=== PATIENT | male | born 1965 | race Caucasian/White ===

== ENCOUNTER 2018-05-19 09:10 | Inpatient (IN) | payer MEDICAID ==
[~2018-05-19] VITALS: Ht 167.6 cm; Wt 88.8 kg
[2018-05-19] VITALS (14 sets, daily range): BP systolic 115–138; BP diastolic 68–80; PULSE 94–102; RESP 12–25; Ht 167.6 cm; Wt 88.8 kg
[2018-05-19] MEDS: PANTOPRAZOLE IV 80 MG in SOD CHLORIDE 0.9% 100 ML IV SCH ×2 (03:30→16:17)
[~2018-05-19 09:10] MED LIST: LIDOCAINE 2% (SDV) 5 ML INJ ONE
[2018-05-19] MEDS ORDERED: SOD CHLORIDE 0.9% 1,000 ML IV STA (09:39)
[2018-05-19] MEDS ORDERED: SOD CHLORIDE 0.9% 0 ML IV ONE (09:53)
[2018-05-19] MEDS ORDERED: CEFTRIAXONE 1 GM/50 ML (PMX) 50 ML IVPB STA (10:45)
[2018-05-19] MEDS ORDERED: PANTOPRAZOLE IV 80 MG in SOD CHLORIDE 0.9% 100 ML IV STA (10:45)
[2018-05-19] MEDS ORDERED: PANTOPRAZOLE 40 MG INJ IV ONE (11:00)
[2018-05-19] MEDS ORDERED: SOD CHLORIDE 0.9% 1,000 ML IV SCH (11:06)
[2018-05-19] MEDS ORDERED: ONDANSETRON 4 MG INJ IV PRN ×2 (11:30→13:00)
[2018-05-19] MEDS ORDERED: ACETAMINOPHEN 325 MG TAB PO PRN (11:30)
--- NOTE | 2018-05-19 11:48 | ERD ---
ER Documentation Chief Complaint Chief Complaint C/O PALPITAITON, SOB FOR A WEEK; NO PAIN HPI This is a 52-year-old male who presents to the emergency room for evaluation of generalized weakness and heart palpitations for the past week. The patient does state that he drinks alcohol every day however he is not drinking alcohol the past 6 days. He states that he has been feeling more weak and noticed that his heart rate has high recently. The patient denies any chest pain that he has some shortness of breath which is worse with exertion. The patient denies taking any medication and came to the ER today for evaluation of his symptoms ROS All systems reviewed and are negative except as per history of present illness. Medications Home Meds No Active Prescriptions or Reported Meds Allergies Allergies: Coded Allergies: No Known Allergy (Unverified , 05/19/18) PMhx/Soc Medical and Surgical Hx: pt denies Medical Hx History of Surgery: Yes (HERNIA) Anesthesia Reaction: No Hx Neurological Disorder: No Hx Respiratory Disorders: No Hx Cardiac Disorders: No Hx Psychiatric Problems: No Hx Miscellaneous Medical Probl: No Hx Alcohol Use: Yes (DAILY) Hx Substance Use: No Hx Tobacco Use: No Smoking Status: Never smoker Physical Exam Vitals Vital Signs Date Temp Pulse Resp B/P (MAP) Pulse Ox O2 O2 Flow FiO2 Time Delivery Rate 05/19/18 97.4 106 17 154/85 100 Nasal 2.0 10:23 (108) Cannula 05/19/18 97.4 119 20 167/93 100 09:17 (117) Physical Exam INITIAL VITAL SIGNS: Reviewed by me GENERAL: The patient is well developed and appropriate for usual state of health in no apparent distress HEENT: Conjunctival pallor, dry mucous membranes, pupils equal, round, and reactive to light. EOMI. There is no scleral icterus. NECK: C-spine is soft and supple, there is no meningismus. There is no cervical lymphadenopathy. LUNGS: Clear to auscultation bilaterally. There are no rales, wheezes or rhonchi. HEART: Tachycardic no murmurs, clicks, rubs or gallops. ABDOMEN: Soft, non-tender, non-distended. There are bowel sounds in all four quadrants. No rebound or guarding. EXTREMITIES: There is no peripheral cyanosis or edema. No focal swelling or erythema. NEUROLOGICAL: The patient moves all four extremities with 5/5 strength. Cranial nerves II - XII are intact. Normal gait. Alert and oriented SKIN: There is no apparent rash or petechiae. Rectal exam: Dark stool, heme positive HEME/LYMPHATIC: There is no evidence of excessive bruising or lymphedema. PSYCHIATRIC: The patient does not appear anxious or depressed. Result Diagram: 05/19/1840 05/19/18 0940 Results 24 hrs Laboratory Tests Test 05/19/18 09:40 05/19/18 10:40 White Blood Count 12.7 10^3/ul Red Blood Count 1.95 10^6/ul Hemoglobin 5.9 g/dl Hematocrit 18.4 % Mean Corpuscular Volume 94.4 fl Mean Corpuscular Hemoglobin 30.3 pg Mean Corpuscular Hemoglobin Concent 32.1 g/dl Red Cell Distribution Width 14.0 % Platelet Count 170 10^3/UL Mean Platelet Volume 10.4 fl Immature Granulocytes % 2.100 % Neutrophils % 60.3 % Lymphocytes % 27.5 % Monocytes % 8.6 % Eosinophils % 1.1 % Basophils % 0.4 % Nucleated Red Blood Cells % 0.9 /100WBC Immature Granulocytes # 0.270 10^3/ul Neutrophils # 7.7 10^3/ul Lymphocytes # 3.5 10^3/ul Monocytes # 1.1 10^3/ul Eosinophils # 0.1 10^3/ul Basophils # 0.1 10^3/ul Nucleated Red Blood Cells # 0.1 10^3/ul Pathologist Review (Hematology) YES Sodium Level 138 mmol/L Potassium Level 4.1 mmol/L Chloride Level 107 mmol/L Carbon Dioxide Level 24 mmol/L Anion Gap 7 Blood Urea Nitrogen 25 mg/dl Creatinine 0.62 mg/dl Est Glomerular Filtrat Rate mL/min > 60 mL/min Glucose Level 180 mg/dl Calcium Level 8.2 mg/dl Total Bilirubin 0.6 mg/dl Direct Bilirubin 0.00 mg/dl Indirect Bilirubin 0.6 mg/dl Aspartate Amino Transf (AST/SGOT) 81 IU/L Alanine Aminotransferase (ALT/SGPT) 107 IU/L Alkaline Phosphatase 65 IU/L Troponin I < 0.012 ng/ml Total Protein 5.6 g/dl Albumin 2.8 g/dl Globulin 2.80 g/dl Albumin/Globulin Ratio 1.00 Lipase 247 U/L Urine Color YELLOW Urine Clarity CLEAR Urine pH 6.0 Urine Specific [place] 1.024 Urine Ketones NEGATIVE mg/dL Urine Nitrite NEGATIVE mg/dL Urine Bilirubin NEGATIVE mg/dL Urine Urobilinogen NEGATIVE mg/dL Urine Leukocyte Esterase NEGATIVE Jose/ul Urine Hemoglobin NEGATIVE mg/dL Urine Glucose NEGATIVE mg/dL Urine Total Protein NEGATIVE mg/dl Current Medications Medications Dose Sig/Jean Paul Start Time Status Last (Trade) Ordered Route PRN Stop Time Admin Dose Reason Admin Sodium 1,000 ml @ Q1H STAT 05/19/18 DC 05/19/18 Chloride 1,000 mls/hr IV 09:39 10:17 05/19/18 10:38 Sodium 0 ml @ 0 Q0M ONCE 05/19/18 DC Chloride mls/hr IV 09:53 05/19/18 09:55 80 mg ONCE ONCE 05/19/18 DC Pantoprazole IV 11:00 (Protonix 05/19/18 11:01 Iv) Pantoprazole 100 ml @ ONCE STAT 05/19/18 80 mg/Sodium 10 mls/hr IV 10:45 Chloride 05/19/18 20:44 Ceftriaxone 50 ml @ ONCE STAT 05/19/18 DC Sodium 100 mls/hr IVPB 10:45 05/19/18 11:14 Sodium 1,000 ml @ [id number] IV 05/19/18 Chloride 80 mls/hr 11:06 05/19/18 23:35 Ondansetron 4 mg ER BRIDGE 05/19/18 HCl (Zofran PRN IV 11:30 Inj) NAUSEA/VOMITI 05/20/18 11:29 NG 650 mg ER BRIDGE 05/19/18 Acetaminophen PRN PO 11:30 (Tylenol .MILD PAIN 05/20/18 11:29 Tab) 1-3 OR TEMP Procedures/MDM EKG: Rate/Rhythm: Sinus tachycardia QRS, ST, T-waves: [No changes consistent w/ acute ischemia] Impression: Sinus tachycardia Chest X-ray 1V Interpreted by me: Soft Tissue: No acute abnormalities Bones: No acute abnormalities Mediastinum/Cardiac Silhouette/Lungs: [No acute abnormalities] This is a 52-year-old male who presents to the emergency room for evaluation of heart palpitations. On my exam the patient was tachycardic, he did have conjunctival pallor. He remained hemodynamically stable with mean arterial pressure greater than 65. An IV line was established and the patient was given IV fluids. The patient states that he does drink alcohol frequently however is not had any alcohol in the past 5 days. Lab work does demonstrate low hemoglobin of 5.3 and rectal examination does show dark stool which is heme positive. The patient is likely suffering from a upper GI bleed and symptomatic anemia at this time. The patient was given Protonix push, he was started on a Protonix drip and will be transfused 2 units of packed red blood cells. The patient will be admitted at this time for further workup and possible gastroenterology consult. The patient will be admitted to Dr. Lott at this time Critical Care: Excluding all billable procedures Time: 44 minutes Treatments/Evaluations: Close monitoring and treatment of unstable vital signs, cardiorespiratory, and neurologic status, while maintaining tight balance of fluid, respiratory, and cardiac interventions. Departure Diagnosis: Primary Impression: Upper GI bleeding Additional Impressions: Symptomatic anemia Palpitations Condition: Serious RYLAND MACE DO May 19, 2018 11:48
[2018-05-19] MEDS: SOD CHLORIDE 0.9% 1,000 ML IV SCH (12:37)
--- NOTE | 2018-05-19 12:41 | HP ---
Date/Time of Note Date/Time of Note DATE: 05/19/18 TIME: 12:41 Assessment/Plan VTE Prophylaxis SCD applied (from Nsg): Yes Pharmacological prophylaxis: NA/contraindicated Pharm contraindication: bleeding Assessment/Plan Hospital Course SUBJECTIVE: Seen and evaluated patient in ER room 13. Currently no rectal bleed, last bleed was prior to arrival. Receiving 1 unit of blood. OBJECTIVE: Vital signs-see below PHYSICAL EXAM: Constitutional: Well-developed, adequately built, lying in bed comfortably. Psych: nl mood/affect, no complaints Head: atraumatic, normocephalic Eyes: nl conjunctiva, nl sclera ENMT: mucosa pink and moist, nl external ears & nose Neck: non-tender, supple Respiratory: clear to auscultation, normal air movement Cardiovascular: nl pulses, regular rate and rhythm Gastrointestinal: non-tender, soft, bowel sounds active in all 4 quadrants. Musculoskeletal/extremities: nl extremities to inspection, motor strength equal bilaterally, no focal deficit. Normal pulses,no cyanosis, no edema. Neurological: Alert oriented 3,nl speech, nl strength Skin: nl turgor ASSESSMENT/PLAN: 52-year-old male with daily alcohol use, here with sudden onset of blackish/tarry stool x 3 day duration, found to have severe anemia.. 1. Melena, likely upper GI bleed -GI consult with for EGD ZACHERY -N.p.o, Protonix drip, IV fluids 2. Acute blood loss anemia -2 units PRBC has been ordered. We will repeat H&H and will transfuse with standing orders -Add iron panel to a.m. labs and IV iron treatment accordingly 3. Leukocytosis, likely reactive -At this time, there is no evidence of infection and will keep off antibiotics. 4. Transaminase elevation, likely secondary to alcohol use -Obtain a hepatitis panel. Benign RUQ exam 5. Alcohol abuse -Counseled on cessation 6. Sinus tachycardia, likely hemodynamic secondary to blood loss anemia -EKG reviewed. No chest pain. Negative troponin. Continue monitoring patient on telemetry and continue hydration. DVT prophylaxis: SCDs Due to prophylaxis: Protonix CODE STATUS: Full code Diet: N.p.o. Rest of the management depend on hospital course. Approximately 60 m spent on this history and physical. Patient was seen in collaboration with Result Diagram: 05/19/1840 05/19/18 0940 Results 24hrs Laboratory Tests Test 05/19/18 09:40 05/19/18 10:40 White Blood Count 12.7 H Red Blood Count 1.95 L Hemoglobin 5.9 *L Hematocrit 18.4 L Mean Corpuscular Volume 94.4 Mean Corpuscular Hemoglobin 30.3 Mean Corpuscular Hemoglobin Concent 32.1 Red Cell Distribution Width 14.0 Platelet Count 170 Mean Platelet Volume 10.4 Immature Granulocytes % 2.100 H Neutrophils % 60.3 Lymphocytes % 27.5 Monocytes % 8.6 Eosinophils % 1.1 Basophils % 0.4 Nucleated Red Blood Cells % 0.9 H Immature Granulocytes # 0.270 H Neutrophils # 7.7 H Lymphocytes # 3.5 H Monocytes # 1.1 H Eosinophils # 0.1 Basophils # 0.1 Nucleated Red Blood Cells # 0.1 H Pathologist Review (Hematology) YES Sodium Level 138 Potassium Level 4.1 Chloride Level 107 Carbon Dioxide Level 24 Anion Gap 7 Blood Urea Nitrogen 25 H Creatinine 0.62 Est Glomerular Filtrat Rate mL/min > 60 Glucose Level 180 Calcium Level 8.2 L Total Bilirubin 0.6 Direct Bilirubin 0.00 Indirect Bilirubin 0.6 Aspartate Amino Transf (AST/SGOT) 81 H Alanine Aminotransferase (ALT/SGPT) 107 H Alkaline Phosphatase 65 Troponin I < 0.012 Total Protein 5.6 L Albumin 2.8 L Globulin 2.80 Albumin/Globulin Ratio 1.00 Lipase 247 Urine Color YELLOW Urine Clarity CLEAR Urine pH 6.0 Urine Specific [place] 1.024 Urine Ketones NEGATIVE Urine Nitrite NEGATIVE Urine Bilirubin NEGATIVE Urine Urobilinogen NEGATIVE Urine Leukocyte Esterase NEGATIVE Urine Hemoglobin NEGATIVE Urine Glucose NEGATIVE Urine Total Protein NEGATIVE HPI/ROS Admit Date/Time Admit Date/Time Hx of Present Illness 52-year-old male with no past medical history, here with sudden onset of black/tarry stool started Wednesday. Patient also had associated abdominal pain, palpitation, nausea without vomiting. Patient admits to drinking alcohol daily for the past week. He denied fever, chills, diarrhea, constipation, sinus, loss of consciousness, shortness of breath, chest pain, palpitation, or other constitutional symptoms. Patient didn't have any previous EGD or colonoscopy evaluations. In the emergency room, patient was noted with hemoglobin 5.9, hematocrit 18.4. Patient also had elevated white count 12,700, BUN 25, AST 81, ALT 107. Vital signs showed elevated pulse rate 119, blood pressure 167/93 on arrival. EKG showed sinus tachycardia with no ST or T wave changes. Patient was ordered with total 2 units of packed red blood cells. He was also placed on tonics drip. ROS A 12 point review of system was assessed and is negative other than what is mentioned in the HPI. PMH/Family/Social Past Medical History See HPI Medications Current Medications Pantoprazole 80 mg/Sodium Chloride 100 ml @ 10 mls/hr ONCE STAT IV ; Start 05/19/18 at 10:45; Stop 05/19/18 at 20:44 Sodium Chloride 1,000 ml @ 80 mls/hr [id number] IV ; Start 05/19/18 at 11:06; Stop 05/19/18 at 23:35 Ondansetron HCl (Zofran Inj) 4 mg ER BRIDGE PRN IV NAUSEA/VOMITING; Start 05/19/18 at 11:30; Stop 05/20/18 at 11:29 Acetaminophen (Tylenol Tab) 650 mg ER BRIDGE PRN PO .MILD PAIN 1-3 OR TEMP; Start 05/19/18 at 11:30; Stop 05/20/18 at 11:29 Coded Allergies: No Known Allergy (Unverified , 05/19/18) Past Surgical History None Social History Daily alcohol use. Denied smoking history or other substance abuse. Smoking Status: Never smoker Exam/Review of Systems Vital Signs Vitals Vital Signs Date Temp Pulse Resp B/P (MAP) Pulse Ox O2 O2 Flow FiO2 Time Delivery Rate 05/19/18 97.4 106 17 154/85 100 Nasal 2.0 10:23 (108) Cannula VASILE BAH NP May 19, 2018 12:41
[2018-05-19] MEDS ORDERED: NACL 0.9% 3 ML SYG IV SCH (13:00)
[2018-05-19] MEDS ORDERED: morphine 2 MG INJ IV PRN (13:00)
--- NOTE | 2018-05-19 15:12 | CONS ---
Assessment/Plan Assessment/Plan Hospital Course (Demo Recall) Summary Assessment and Plan: Assessment: Melena/anemia Elevated Lft's Excessive ETOH use Plan: Keep NPO Continue PPI gtt Will attempt to proceed with EGD today-however due to logistics we may need to proceed with upper endoscopy tomorrow Endoscopy - risks/benefits/alternatives/indications of procedure and sedation/anesthesia discussed with patient who states understanding and gives informed consent to proceed. Will monitor labs - and obtain abd u/s Patient seen in collaboration with Dr. Figueroa CC: MISTY FIGUEROA ; Consultation Date/Type/Reason Admit Date/Time Date of Consultation: May 19, 2018 Type of Consult GI Reason for Consultation Melena/anemia Date/Time of Note DATE: 05/19/18 TIME: 15:05 Hx of Present Illness This is a 52 yeat old male with PMH excessive ETOH use who has been admitted for severe anemia and melena x3-5 days. He denies NSAIDs use, abd pain, nausea/vomiting, or hematochezia. He has never has an EGD or colonoscopy. Initial hgb 5.9 he is currently receiving his second unit of packed RBCs WBCs are 12.7 with normal platelet function patient with elevated liver function test however ALT is greater than AST which is not typically seen with alcohol induced transaminitis. Discussed plan for possible EGD today reviewed risk/benefits of alternatives of sedation and procedure patient verbalized understanding is agreeable to procedure. Review of Systems: A 12 system, review was conducted and is negative except as noted in the HPI or here. Past Medical History Home Meds No Active Prescriptions or Reported Meds Medications Current Medications Pantoprazole 80 mg/Sodium Chloride 100 ml @ 10 mls/hr ONCE STAT IV ; Start at 10:45; Stop 05/19/18 at 20:44 Sodium Chloride 1,000 ml @ 80 mls/hr [id number] IV ; Start 05/19/18 at 11:06; Stop 05/19/18 at 23:35 Ondansetron HCl (Zofran Inj) 4 mg ER BRIDGE PRN IV NAUSEA/VOMITING; Start 05/19/18 at 11:30; Stop 05/20/18 at 11:29 Acetaminophen (Tylenol Tab) 650 mg ER BRIDGE PRN PO .MILD PAIN 1-3 OR TEMP Last administered on 05/19/18at 14:23; Admin Dose 650 MG; Start 05/19/18 at 11:30; Stop 05/20/18 at 11:29 Sodium Chloride 1,000 ml @ 100 mls/hr Q10H IV ; Start 05/19/18 at 12:37 IV Flush (NS 3 ml) 3 ml PER PROTOCOL IV ; Start 05/19/18 at 13:00 Ondansetron HCl (Zofran Inj) 4 mg Q6H PRN IV NAUSEA/VOMITING; Start 05/19/18 at 13:00 Morphine Sulfate (morphine) 2 mg Q4H PRN IV .SEVERE PAIN 7-10; Start 05/19/18 at 13:00 Pantoprazole 80 mg/Sodium Chloride 100 ml @ 10 mls/hr Q10H IV ; Start 05/19/18 at 13:00 Ferric Sodium Gluconate Complex 125 mg/Sodium Chloride 100 ml @ 100 mls/hr DAILY@1300 IVPB ; Start 05/20/18 at 13:00; Stop 05/22/18 at 13:59 Allergies: Coded Allergies: No Known Allergy (Unverified , 05/19/18) Social History Smoking Status: Never smoker Exam/Review of Systems Exam Vitals Vital Signs Date Temp Pulse Resp B/P (MAP) Pulse Ox O2 O2 Flow FiO2 Time Delivery Rate 05/19/18 99.0 14:23 05/19/18 102 13:49 05/19/18 15 136/75 100 Nasal 2.0 12:56 (95) Cannula Constitutional: alert Head: normocephalic Eyes: nl conjunctiva ENMT: nl external ears & nose Neck: supple Respiratory: clear to auscultation, normal air movement Cardiovascular: regular rate and rhythm Gastrointestinal: soft, non-tender, bowel sounds Results Result Diagram: 05/19/18 0940 05/19/18 0940 Results 24hrs Laboratory Tests Test 05/19/18 09:40 05/19/18 10:40 White Blood Count 12.7 H Red Blood Count 1.95 L Hemoglobin 5.9 *L Hematocrit 18.4 L Mean Corpuscular Volume 94.4 Mean Corpuscular Hemoglobin 30.3 Mean Corpuscular Hemoglobin Concent 32.1 Red Cell Distribution Width 14.0 Platelet Count 170 Mean Platelet Volume 10.4 Immature Granulocytes % 2.100 H Neutrophils % 60.3 Segmented Neutrophils % (Manual) 66 Band Neutrophils % (Manual) 1 Lymphocytes % 27.5 Lymphocytes % (Manual) 29 Monocytes % 8.6 Monocytes % (Manual) 2 Eosinophils % 1.1 Eosinophils % (Manual) 2 Basophils % 0.4 Nucleated Red Blood Cells % 1 H Immature Granulocytes # 0.270 H Neutrophils # 7.7 H Neutrophils # (Manual) 8.4 H Band Neutrophils # 0.1 Lymphocytes (Manual) 3.6 H Lymphocytes # 3.5 H Monocytes # 1.1 H Monocytes # (Manual) 0.2 L Eosinophils # 0.1 Basophils # 0.1 Nucleated Red Blood Cells # 0.1 H Pathologist Review (Hematology) YES Platelet Estimate NORMAL Polychromasia 1+ Hypochromasia 1+ Anisocytosis 1+ Microcytosis 1+ Sodium Level 138 Potassium Level 4.1 Chloride Level 107 Carbon Dioxide Level 24 Anion Gap 7 Blood Urea Nitrogen 25 H Creatinine 0.62 Est Glomerular Filtrat Rate mL/min > 60 Glucose Level 180 Calcium Level 8.2 L Iron Level 22 L Total Iron Binding Capacity 425 H Percent Iron Saturation 5 L Ferritin 11.5 Total Bilirubin 0.6 Direct Bilirubin 0.00 Indirect Bilirubin 0.6 Aspartate Amino Transf (AST/SGOT) 81 H Alanine Aminotransferase (ALT/SGPT) 107 H Alkaline Phosphatase 65 Troponin I < 0.012 Total Protein 5.6 L Albumin 2.8 L Globulin 2.80 Albumin/Globulin Ratio 1.00 Lipase 247 Carcinoembryonic Antigen 0.7 Urine Color YELLOW Urine Clarity CLEAR Urine pH 6.0 Urine Specific [place] 1.024 Urine Ketones NEGATIVE Urine Nitrite NEGATIVE Urine Bilirubin NEGATIVE Urine Urobilinogen NEGATIVE Urine Leukocyte Esterase NEGATIVE Urine Hemoglobin NEGATIVE Urine Glucose NEGATIVE Urine Total Protein NEGATIVE Medications Medication Current Medications Pantoprazole 80 mg/Sodium Chloride 100 ml @ 10 mls/hr ONCE STAT IV ; Start 05/19/18 at 10:45; Stop 05/19/18 at 20:44 Sodium Chloride 1,000 ml @ 80 mls/hr [id number] IV ; Start 05/19/18 at 11:06; Stop 05/19/18 at 23:35 Ondansetron HCl (Zofran Inj) 4 mg ER BRIDGE PRN IV NAUSEA/VOMITING; Start 05/19/18 at 11:30; Stop 05/20/18 at 11:29 Acetaminophen (Tylenol Tab) 650 mg ER BRIDGE PRN PO .MILD PAIN 1-3 OR TEMP Last administered on 05/19/18at 14:23; Admin Dose 650 MG; Start 05/19/18 at 11:30; Stop 05/20/18 at 11:29 Sodium Chloride 1,000 ml @ 100 mls/hr Q10H IV ; Start 05/19/18 at 12:37 IV Flush (NS 3 ml) 3 ml PER PROTOCOL IV ; Start 05/19/18 at 13:00 Ondansetron HCl (Zofran Inj) 4 mg Q6H PRN IV NAUSEA/VOMITING; Start 05/19/18 at 13:00 Morphine Sulfate (morphine) 2 mg Q4H PRN IV .SEVERE PAIN 7-10; Start 05/19/18 at 13:00 Pantoprazole 80 mg/Sodium Chloride 100 ml @ 10 mls/hr Q10H IV ; Start 05/19/18 at 13:00 Ferric Sodium Gluconate Complex 125 mg/Sodium Chloride 100 ml @ 100 mls/hr DAILY@1300 IVPB ; Start 05/20/18 at 13:00; Stop 05/22/18 at 13:59 ALTON ENGLAND May 19, 2018 15:12
[2018-05-19] MEDS ORDERED: PROPOFOL 20 ML ONE (16:50)
[2018-05-19] MEDS ORDERED: FENTAnyl 50 MCG/ML VIAL ONE (16:50)
[2018-05-19] MEDS ORDERED: MIDAZOLAM 1 MG/ML 2 ML INJ ONE (16:50)
--- NOTE | 2018-05-19 16:59 | PREAC ---
Date/Time of Note Date/Time of Note DATE: 05/19/18 TIME: 16:58 Anesthesia Eval and Record Evaluation Time Pre-Procedure Interview DATE: 05/19/18 TIME: 16:58 Age 52 Sex male NPO: 8 hrs Preoperative diagnosis ANEMIA, MELENA Planned procedure egd Past Medical History Past Medical History: Includes Hepatic: Alcohol abuse Heme: Anemia Surgery & Anesthesia Issues No known issue Meds Anticoagulation: No Beta Caty within 24 hr: No Reason Beta Caty not given: Pt. not on B-Caty No Active Prescriptions or Reported Meds Current Medications Pantoprazole 80 mg/Sodium Chloride 100 ml @ 10 mls/hr ONCE STAT IV ; Start 05/19/18 at 10:45; Stop 05/19/18 at 20:44 Sodium Chloride 1,000 ml @ 80 mls/hr [id number] IV ; Start 05/19/18 at 11:06; Stop 05/19/18 at 23:35 Ondansetron HCl (Zofran Inj) 4 mg ER BRIDGE PRN IV NAUSEA/VOMITING; Start 05/19/18 at 11:30; Stop 05/20/18 at 11:29 Acetaminophen (Tylenol Tab) 650 mg ER BRIDGE PRN PO .MILD PAIN 1-3 OR TEMP Last administered on 05/19/18at 14:23; Admin Dose 650 MG; Start 05/19/18 at 11:30; Stop 05/20/18 at 11:29 Sodium Chloride 1,000 ml @ 100 mls/hr Q10H IV Last administered on 05/19/18at 12:37; Admin Dose 100 MLS/HR; Start 05/19/18 at 12:37 IV Flush (NS 3 ml) 3 ml PER PROTOCOL IV ; Start 05/19/18 at 13:00 Ondansetron HCl (Zofran Inj) 4 mg Q6H PRN IV NAUSEA/VOMITING; Start 05/19/18 at 13:00 Morphine Sulfate (morphine) 2 mg Q4H PRN IV .SEVERE PAIN 7-10; Start 05/19/18 at 13:00 Pantoprazole 80 mg/Sodium Chloride 100 ml @ 10 mls/hr Q10H IV Last administered on 05/19/18at 16:17; Admin Dose 10 MLS/HR; Start 05/19/18 at 13:00 Ferric Sodium Gluconate Complex 125 mg/Sodium Chloride 100 ml @ 100 mls/hr DAILY@1300 IVPB ; Start 05/20/18 at 13:00; Stop 05/22/18 at 13:59 Meds reviewed: Yes Allergies Coded Allergies: No Known Allergy (Unverified , 05/19/18) Allergies Reviewed: Yes Labs/Studies Labs Reviewed: Reviewed by anesthesiologist Result Diagram: 05/19/18 0940 05/19/18 0940 Laboratory Tests 05/19/18 09:40 Blood Bank Test 05/19/18 10:16 Antibody Screen NEGATIVE Blood Product Summary Counts Blood Type O POSITIVE Crossmatch Red Blood Cells test: N/A Pre-procedure Exam Last vitals Vital Signs Date Temp Pulse Resp B/P (MAP) Pulse Ox O2 O2 Flow FiO2 Time Delivery Rate 05/19/18 99.6 102 12 125/80 98 Room Air 16:45 (95) 05/19/18 2.0 12:56 Airway: Adequate mouth opening, Adequate thyromental dist Mallampati: Mallampati IV Teeth: Normal Lung: Normal Heart: Normal ASA Physical Status ASA physical status: 3 Emergency: None Pre-operative Attestations Prior to commencing anesthesia and surgery, the patient was re-evaluated, there was verification of: *The patient's identity *The results of appropriate recent lab work and preoperative vital signs *The above evaluation not changing prior to induction *Anesthetic plan, risk benefits, alternative and complications discussed with patient/family; questions answered; patient/family understands, accepts and wishes to proceed. KAILASH TAVERAS DO May 19, 2018 16:59
--- NOTE | 2018-05-19 17:27 | HPN ---
Date/Time of Note Date/Time of Note DATE: 05/19/18 TIME: 17:27 Interval H&P Admission Note Pt. seen H&P reviewed: No system changes MISTY FIGUEROA May 19, 2018 17:27
[2018-05-20] VITALS (9 sets, daily range): BP systolic 101–114; BP diastolic 60–71; PULSE 70–87; RESP 18–20
[2018-05-20] MEDS: PANTOPRAZOLE IV 80 MG in SOD CHLORIDE 0.9% 100 ML IV SCH (08:56)
[2018-05-20] MEDS: SOD CHLORIDE 0.9% 1,000 ML IV SCH ×2 (08:57→17:34)
[2018-05-20] MEDS ORDERED: SOD CHLORIDE 0.9% 250 ML IV* ONE (09:49)
--- NOTE | 2018-05-20 10:17 | PN ---
Date/Time of Note Date/Time of Note DATE: 05/20/18 TIME: 10:10 Assessment/Plan VTE Prophylaxis Risk score (from Nsg)>0 risk: 8 SCD applied (from Nsg): Yes (pls correct nsg risk assessment ) SCD contraindicated: low risk/ambulating Pharmacological prophylaxis: NA/contraindicated Pharm contraindication: low risk/ambulating, bleeding Lines/Catheters IV Catheter Type (from Nrsg): Peripheral IV Assessment/Plan Hospital Course SUBJECTIVE: Doing well. No acute distress. OBJECTIVE: Vital signs-see below PHYSICAL EXAM: Constitutional: Well-developed, adequately built, lying in bed comfortably. Psych: nl mood/affect, no complaints Head: atraumatic, normocephalic Eyes: nl conjunctiva, nl sclera ENMT: mucosa pink and moist, nl external ears & nose Neck: non-tender, supple Respiratory: clear to auscultation, normal air movement Cardiovascular: nl pulses, regular rate and rhythm Gastrointestinal: non-tender, soft, bowel sounds active in all 4 quadrants. Musculoskeletal/extremities: nl extremities to inspection, motor strength equal bilaterally, no focal deficit. Normal pulses,no cyanosis, no edema. Neurological: Alert oriented 3,nl speech, nl strength Skin: nl turgor ASSESSMENT/PLAN: 52-year-old male with daily alcohol use, here with sudden onset of blackish/tarry stool x 3 day duration, found to have severe anemia.. 1. Upper GI bleed -Status post EGD 05/19/2018=> alcoholic gastritis, esophageal varices grade I-II -Start propranolol per GI recommendation -PPI twice daily -Avoid NSAIDs -Alcohol cessation -Advance diet as tolerated 2. Acute blood loss anemia -s/p 4 2 units PRBC=> improved H&H=> transfuse 1 more unit to keep hemoglobin above 9 -Continue IV iron 3. Alcoholic liver disease -Trending up LFTs, follow-up hepatitis panel -Cessation advised -Management per [facility] 4. Thrombocytopenia, likely secondary to alcoholic liver disease -We will transfuse 1 unit of platelet in light of GI bleed 5. Alcohol abuse -Counseled on cessation -line assembly utility worker to provide resources as patient is very much interested in cessation 6. Sinus tachycardia, likely hemodynamic secondary to blood loss anemia -Resolved. 7. Reactive leukocytosis -Resolved DVT prophylaxis: SCDs Due to prophylaxis: Protonix CODE STATUS: Full code Diet: Full liquid diet. Disposition: Advance diet, transfuse 1 more PRBC and platelet. Monitor H&H in a.m. If no further symptoms, discharge planning on twice daily PPI, propranolol, with alcohol cessation. Patient was seen in collaboration with Result Diagram: 05/20/18 0700 05/20/18 0701 Results 24hrs Laboratory Tests Test 05/19/18 10:40 05/19/18 18:55 05/19/18 22:52 05/20/18 06:45 Urine Color YELLOW Urine Clarity CLEAR Urine pH 6.0 Urine Specific 1.024 [place] Urine Ketones NEGATIVE Urine Nitrite NEGATIVE Urine Bilirubin NEGATIVE Urine NEGATIVE Urobilinogen Urine Leukocyte NEGATIVE Esterase Urine Hemoglobin NEGATIVE Urine Glucose NEGATIVE Urine Total NEGATIVE Protein Hemoglobin 6.9 *L 6.5 *L Hematocrit 21.0 L 19.7 L Lab Scanned BLOOD TRANSFUSIO Report N Test 05/20/18 07:00 05/20/18 07:01 White Blood Count 6.6 # Red Blood Count 2.99 #L Hemoglobin 8.9 #L Hematocrit 27.0 #L Mean Corpuscular 90.3 Volume Mean Corpuscular 29.8 Hemoglobin Mean Corpuscular 33.0 Hemoglobin Concen t Red Cell 14.9 H Distribution Width Platelet Count 89 #L Mean Platelet 10.5 H Volume Immature 0.900 H Granulocytes % Neutrophils % 57.5 Lymphocytes % 30.6 Monocytes % 8.7 Eosinophils % 2.0 Basophils % 0.3 Nucleated Red 1.2 H Blood Cells % Immature 0.060 H Granulocytes # Neutrophils # 3.8 Lymphocytes # 2.0 Monocytes # 0.6 Eosinophils # 0.1 Basophils # 0.0 Nucleated Red 0.1 H Blood Cells # Prothrombin Time 14.7 Prothrombin Time 1.1 Ratio INR International 1.14 Normalized Ratio Hemoglobin A1c 5.2 Sodium Level 141 Potassium Level 4.0 Chloride Level 111 H Carbon Dioxide 24 Level Anion Gap 6 Blood Urea 19 Nitrogen Creatinine 0.62 Est Glomerular > 60 Filtrat Rate mL/min Glucose Level 104 # Calcium Level 7.7 L Phosphorus Level 3.3 Magnesium Level 2.0 Total Bilirubin 1.1 Direct Bilirubin 0.00 Indirect 1.1 Bilirubin Aspartate Amino 127 #H Transf (AST/SGOT) Alanine 135 H Aminotransferase (ALT/SGPT) Alkaline 51 Phosphatase Total Protein 5.4 L Albumin 2.5 L Globulin 2.90 Albumin/Globulin 0.86 Ratio Triglycerides 81 Level Cholesterol Level 57 L LDL Cholesterol, 25 Calculated HDL Cholesterol 16 L Cholesterol/HDL 3.5 Ratio Exam/Review of Systems Exam Vitals Vital Signs Date Temp Pulse Resp B/P (MAP) Pulse Ox O2 O2 Flow FiO2 Time Delivery Rate 05/20/18 98.5 86 20 109/70 99 Room Air 07:31 (83) 05/19/18 8.0 17:36 Intake and Output 05/19/18 05/19/18 05/20/18 1414:59 22:59 06:59 IntakeIntake Total 1350 ml 100 ml OutputOutput Total 200 ml BalanceBalance 1150 ml 100 ml Results Results 24hrs Laboratory Tests Test 05/19/18 10:40 05/19/18 18:55 05/19/18 22:52 05/20/18 06:45 Urine Color YELLOW Urine Clarity CLEAR Urine pH 6.0 Urine Specific 1.024 [place] Urine Ketones NEGATIVE Urine Nitrite NEGATIVE Urine Bilirubin NEGATIVE Urine NEGATIVE Urobilinogen Urine Leukocyte NEGATIVE Esterase Urine Hemoglobin NEGATIVE Urine Glucose NEGATIVE Urine Total NEGATIVE Protein Hemoglobin 6.9 *L 6.5 *L Hematocrit 21.0 L 19.7 L Lab Scanned BLOOD TRANSFUSIO Report N Test 05/20/18 07:00 05/20/18 07:01 White Blood Count 6.6 # Red Blood Count 2.99 #L Hemoglobin 8.9 #L Hematocrit 27.0 #L Mean Corpuscular 90.3 Volume Mean Corpuscular 29.8 Hemoglobin Mean Corpuscular 33.0 Hemoglobin Concen t Red Cell 14.9 H Distribution Width Platelet Count 89 #L Mean Platelet 10.5 H Volume Immature 0.900 H Granulocytes % Neutrophils % 57.5 Lymphocytes % 30.6 Monocytes % 8.7 Eosinophils % 2.0 Basophils % 0.3 Nucleated Red 1.2 H Blood Cells % Immature 0.060 H Granulocytes # Neutrophils # 3.8 Lymphocytes # 2.0 Monocytes # 0.6 Eosinophils # 0.1 Basophils # 0.0 Nucleated Red 0.1 H Blood Cells # Prothrombin Time 14.7 Prothrombin Time 1.1 Ratio INR International 1.14 Normalized Ratio Hemoglobin A1c 5.2 Sodium Level 141 Potassium Level 4.0 Chloride Level 111 H Carbon Dioxide 24 Level Anion Gap 6 Blood Urea 19 Nitrogen Creatinine 0.62 Est Glomerular > 60 Filtrat Rate mL/min Glucose Level 104 # Calcium Level 7.7 L Phosphorus Level 3.3 Magnesium Level 2.0 Total Bilirubin 1.1 Direct Bilirubin 0.00 Indirect 1.1 Bilirubin Aspartate Amino 127 #H Transf (AST/SGOT) Alanine 135 H Aminotransferase (ALT/SGPT) Alkaline 51 Phosphatase Total Protein 5.4 L Albumin 2.5 L Globulin 2.90 Albumin/Globulin 0.86 Ratio Triglycerides 81 Level Cholesterol Level 57 L LDL Cholesterol, 25 Calculated HDL Cholesterol 16 L Cholesterol/HDL 3.5 Ratio Medications Medication Current Medications Ondansetron HCl (Zofran Inj) 4 mg ER BRIDGE PRN IV NAUSEA/VOMITING; Start 05/19/18 at 11:30; Stop 05/20/18 at 11:29 Acetaminophen (Tylenol Tab) 650 mg ER BRIDGE PRN PO .MILD PAIN 1-3 OR TEMP Last administered on 05/19/18at 14:23; Admin Dose 650 MG; Start 05/19/18 at 11:30; Stop 05/20/18 at 11:29 Sodium Chloride 1,000 ml @ 100 mls/hr Q10H IV Last administered on 05/20/18at 08:57; Admin Dose 100 MLS/HR; Start 05/19/18 at 12:37 IV Flush (NS 3 ml) 3 ml PER PROTOCOL IV ; Start 05/19/18 at 13:00 Ondansetron HCl (Zofran Inj) 4 mg Q6H PRN IV NAUSEA/VOMITING; Start 05/19/18 at 13:00 Morphine Sulfate (morphine) 2 mg Q4H PRN IV .SEVERE PAIN 7-10; Start 05/19/18 at 13:00 Pantoprazole 80 mg/Sodium Chloride 100 ml @ 10 mls/hr Q10H IV Last administered on 05/19/18at 03:30; Admin Dose 10 MLS/HR; Start 05/19/18 at 13:00 Ferric Sodium Gluconate Complex 125 mg/Sodium Chloride 100 ml @ 100 mls/hr DAILY@1300 IVPB ; Start 05/20/18 at 13:00; Stop 05/22/18 at 13:59 VASILE BAH NP May 20, 2018 10:17
[2018-05-20] MEDS: PROPRANOLOL 10 MG TAB PO SCH ×2 (13:29→21:10)
[2018-05-20] MEDS: SOD FERRIC GLUC COMPLX 125 MG in SOD CHLORIDE 0.9% 100 ML IVPB SCH (13:29)
[2018-05-20] MEDS: PANTOPRAZOLE 40 MG INJ IV SCH ×2 (13:29→17:34)
--- NOTE | 2018-05-20 14:17 | PAC ---
Date/Time of Note Date/Time of Note DATE: 05/20/18 TIME: 14:16 Post-Anesthesia Notes Post-Anesthesia Note Last documented vital signs Vital Signs Date Temp Pulse Resp B/P (MAP) Pulse Ox O2 O2 Flow FiO2 Time Delivery Rate 05/20/18 77 12:12 05/20/18 98.9 20 114/66 96 Room Air 11:31 (82) 05/19/18 98 70 20 115/65 98 8.0 17:36 Activity: WNL Respiratory function: WNL Cardiovascular function: WNL Mental status: Baseline Pain reasonably controlled: Yes Hydration appropriate: Yes Nausea/Vomiting absent: Yes KAILASH TAVERAS DO May 20, 2018 14:17
[2018-05-21] VITALS (8 sets, daily range): BP systolic 99–114; BP diastolic 59–72; PULSE 65–80; RESP 12–20
[2018-05-21] MEDS: PANTOPRAZOLE 40 MG INJ IV SCH ×2 (05:06→18:14)
[2018-05-21] MEDS: SOD CHLORIDE 0.9% 1,000 ML IV SCH ×2 (05:07→16:07)
[2018-05-21] MEDS: PROPRANOLOL 10 MG TAB PO SCH ×2 (08:51→21:18)
--- NOTE | 2018-05-21 10:45 | PN ---
Date/Time of Note Date/Time of Note DATE: 05/21/18 TIME: 10:42 Assessment/Plan VTE [place]axis [place] [facility] [place]: 3 [place] [facility] [place] Yes Pharmacological prophylaxis: NA/contraindicated Pharm contraindication: liver dx Lines/Catheters [facility] Saline Lock Assessment/Plan Hospital Course SUBJECTIVE: Overnight episodes. No overt bleeding. OBJECTIVE: Vital signs-see below PHYSICAL EXAM: Constitutional: Well-developed, adequately built, lying in bed comfortably. Psych: nl mood/affect, no complaints Head: atraumatic, normocephalic Eyes: nl conjunctiva, nl sclera ENMT: mucosa pink and moist, nl external ears & nose Neck: non-tender, supple Respiratory: clear to auscultation, normal air movement Cardiovascular: nl pulses, regular rate and rhythm Gastrointestinal: non-tender, soft, bowel sounds active in all 4 quadrants. Musculoskeletal/extremities: nl extremities to inspection, motor strength equal bilaterally, no focal deficit. Normal pulses,no cyanosis, no edema. Neurological: Alert oriented 3,nl speech, nl strength Skin: nl turgor ASSESSMENT/PLAN: 52-year-old male with daily alcohol use, here with sudden onset of blackish/tarry stool x 3 day duration, found to have severe anemia.. 1. Upper GI bleed -Status post EGD 05/19/2018=> alcoholic gastritis, esophageal varices grade I-II -GI on board, recommended propranolol/PPI twice daily -Avoid NSAIDs -Alcohol cessation -Advance diet as tolerated 2. Acute blood loss anemia requiring multiple transfusion secondary to GI bleed -H&H stable with no further fluctuations. -Continue iron supplementation 3. Alcoholic liver disease/transaminitis/hepatitis C -Alcohol cessation advised. -Monitor LFTs -Hep C reactive. Management per ring [facility]er 4. Thrombocytopenia of alcoholic liver disease -Stable. Monitor 5. Alcohol abuse -Counseled on cessation -nursing home social worker to provide resources as patient is very much interested in cessation DVT prophylaxis: SCDs Due to prophylaxis: Protonix CODE STATUS: Full code Diet: Full liquid diet. Disposition: LFTs, hepatitis serology noted. Follow-up GI recommendations. Patient was seen in collaboration with Result Diagram: 05/21/18 0537 05/21/18 0537 Results 24hrs Laboratory Tests Test 05/21/18 05:37 White Blood Count 5.9 Red Blood Count 2.77 L Hemoglobin 8.3 L Hematocrit 24.9 L Mean Corpuscular Volume 89.9 Mean Corpuscular Hemoglobin 30.0 Mean Corpuscular Hemoglobin Concent 33.3 Red Cell Distribution Width 15.2 H Platelet Count 98 L Mean Platelet Volume 11.1 H Immature Granulocytes % 0.500 H Neutrophils % 54.1 Lymphocytes % 31.6 Monocytes % 10.6 Eosinophils % 2.9 Basophils % 0.3 Nucleated Red Blood Cells % 0.3 H Immature Granulocytes # 0.030 Neutrophils # 3.2 Lymphocytes # 1.9 Monocytes # 0.6 Eosinophils # 0.2 Basophils # 0.0 Nucleated Red Blood Cells # 0.0 Sodium Level 141 Potassium Level 3.9 Chloride Level 113 H Carbon Dioxide Level 24 Anion Gap 4 L Blood Urea Nitrogen 16 Creatinine 0.63 Est Glomerular Filtrat Rate mL/min > 60 Glucose Level 89 Calcium Level 7.7 L Magnesium Level 2.0 Exam/Review of Systems Exam Vitals Vital Signs Date Temp Pulse Resp B/P (MAP) Pulse Ox O2 O2 Flow FiO2 Time Delivery Rate 05/21/18 77 08:19 05/21/18 98.0 18 114/69 98 Room Air 08:19 (84) 05/19/18 8.0 17:36 Intake and Output 05/20/18 05/20/18 05/21/18 1515:00 23:00 07:00 IntakeIntake Total 50 ml 720 ml 1350 ml BalanceBalance 50 ml 720 ml 1350 ml Results Results 24hrs Laboratory Tests Test 05/21/18 05:37 White Blood Count 5.9 Red Blood Count 2.77 L Hemoglobin 8.3 L Hematocrit 24.9 L Mean Corpuscular Volume 89.9 Mean Corpuscular Hemoglobin 30.0 Mean Corpuscular Hemoglobin Concent 33.3 Red Cell Distribution Width 15.2 H Platelet Count 98 L Mean Platelet Volume 11.1 H Immature Granulocytes % 0.500 H Neutrophils % 54.1 Lymphocytes % 31.6 Monocytes % 10.6 Eosinophils % 2.9 Basophils % 0.3 Nucleated Red Blood Cells % 0.3 H Immature Granulocytes # 0.030 Neutrophils # 3.2 Lymphocytes # 1.9 Monocytes # 0.6 Eosinophils # 0.2 Basophils # 0.0 Nucleated Red Blood Cells # 0.0 Sodium Level 141 Potassium Level 3.9 Chloride Level 113 H Carbon Dioxide Level 24 Anion Gap 4 L Blood Urea Nitrogen 16 Creatinine 0.63 Est Glomerular Filtrat Rate mL/min > 60 Glucose Level 89 Calcium Level 7.7 L Magnesium Level 2.0 Medications Medication Current Medications Sodium Chloride 1,000 ml @ 100 mls/hr Q10H IV Last administered on 05/21/18at 05:07; Admin Dose 100 MLS/HR; Start 05/19/18 at 12:37 IV Flush (NS 3 ml) 3 ml PER PROTOCOL IV ; Start 05/19/18 at 13:00 Ondansetron HCl (Zofran Inj) 4 mg Q6H PRN IV NAUSEA/VOMITING; Start 05/19/18 at 13:00 Morphine Sulfate (morphine) 2 mg Q4H PRN IV .SEVERE PAIN 7-10; Start 05/19/18 at 13:00 Ferric Sodium Gluconate Complex 125 mg/Sodium Chloride 100 ml @ 100 mls/hr DAILY@1300 IVPB Last administered on 05/20/18at 13:29; Admin Dose 100 MLS/HR; Start 05/20/18 at 13:00; Stop 05/22/18 at 13:59 Propranolol HCl (Inderal) 10 mg BID PO Last administered on 05/21/18at 08:51; Admin Dose 10 MG; Start 05/20/18 at 10:00 Pantoprazole (Protonix Iv) 40 mg BID@06,18 IV Last administered on 05/21/18at 05:06; Admin Dose 40 MG; Start 05/20/18 at 10:00 VASILE BAH NP May 21, 2018 10:45
[2018-05-21] MEDS: SOD FERRIC GLUC COMPLX 125 MG in SOD CHLORIDE 0.9% 100 ML IVPB SCH (13:23)
--- NOTE | 2018-05-21 14:13 | PN ---
Date/Time of Note Date/Time of Note DATE: 05/21/18 TIME: 14:02 Assessment/Plan VTE Prophylaxis Risk score (from Ns)>0 risk: 3 SCD applied (from [facility] [place] Yes Pharmacological prophylaxis: NA/contraindicated Pharm contraindication: bleeding Lines/Catheters IV C[facility]from [facility] Saline Lock Assessment/Plan Assessment/Plan Assessment: Melena Anemia S/p EGD 05/19/18 -Hemorrhagic alcoholic gastritis -Esophageal varices Elevated Lft's Excessive ETOH use Plan: Continue Protonix Propranolol 10 mg BID Carafate Iron supplements Hep C PCR - pending - if positive will treat as an OP Patient seen in collaboration with Dr. Stephens Subjective: Patient is doing fair. He is c/o feeling full and having poor appetite. Hemoglobin is low but trending up. No evidence of GI bleeding. Patient is on Iron supplements. Results EGD discussed with the patient . Hep C AP came back positive. Will order Hep C PCR and if positive will treat the patient as an PO. Constitutional: alert Head: normocephalic Eyes: nl conjunctiva ENMT: nl external ears & nose Neck: supple Respiratory: clear to auscultation, normal air movement Cardiovascular: regular rate and rhythm Gastrointestinal: soft, non-tender, bowel sounds Result Diagram: 05/21/18 0537 05/21/18 0537 Results 24hrs Laboratory Tests Test 05/21/18 05:37 White Blood Count 5.9 Red Blood Count 2.77 L Hemoglobin 8.3 L Hematocrit 24.9 L Mean Corpuscular Volume 89.9 Mean Corpuscular Hemoglobin 30.0 Mean Corpuscular Hemoglobin Concent 33.3 Red Cell Distribution Width 15.2 H Platelet Count 98 L Mean Platelet Volume 11.1 H Immature Granulocytes % 0.500 H Neutrophils % 54.1 Lymphocytes % 31.6 Monocytes % 10.6 Eosinophils % 2.9 Basophils % 0.3 Nucleated Red Blood Cells % 0.3 H Immature Granulocytes # 0.030 Neutrophils # 3.2 Lymphocytes # 1.9 Monocytes # 0.6 Eosinophils # 0.2 Basophils # 0.0 Nucleated Red Blood Cells # 0.0 Sodium Level 141 Potassium Level 3.9 Chloride Level 113 H Carbon Dioxide Level 24 Anion Gap 4 L Blood Urea Nitrogen 16 Creatinine 0.63 Est Glomerular Filtrat Rate mL/min > 60 Glucose Level 89 Calcium Level 7.7 L Magnesium Level 2.0 CC: ÁNGEL STEPHENS MD ; Exam/Review of Systems Exam Vitals Vital Signs Date Temp Pulse Resp B/P (MAP) Pulse Ox O2 O2 Flow FiO2 Time Delivery Rate 05/21/18 70 12:22 05/21/18 98.7 16 111/72 98 Room Air 11:57 (85) 05/19/18 8.0 17:36 Intake and Output 05/20/18 05/20/18 05/21/18 1515:00 23:00 07:00 IntakeIntake Total 50 ml 720 ml 1350 ml BalanceBalance 50 ml 720 ml 1350 ml Results Results 24hrs Laboratory Tests Test 05/21/18 05:37 White Blood Count 5.9 Red Blood Count 2.77 L Hemoglobin 8.3 L Hematocrit 24.9 L Mean Corpuscular Volume 89.9 Mean Corpuscular Hemoglobin 30.0 Mean Corpuscular Hemoglobin Concent 33.3 Red Cell Distribution Width 15.2 H Platelet Count 98 L Mean Platelet Volume 11.1 H Immature Granulocytes % 0.500 H Neutrophils % 54.1 Lymphocytes % 31.6 Monocytes % 10.6 Eosinophils % 2.9 Basophils % 0.3 Nucleated Red Blood Cells % 0.3 H Immature Granulocytes # 0.030 Neutrophils # 3.2 Lymphocytes # 1.9 Monocytes # 0.6 Eosinophils # 0.2 Basophils # 0.0 Nucleated Red Blood Cells # 0.0 Sodium Level 141 Potassium Level 3.9 Chloride Level 113 H Carbon Dioxide Level 24 Anion Gap 4 L Blood Urea Nitrogen 16 Creatinine 0.63 Est Glomerular Filtrat Rate mL/min > 60 Glucose Level 89 Calcium Level 7.7 L Magnesium Level 2.0 Medications Medication Current Medications Sodium Chloride 1,000 ml @ 100 mls/hr Q10H IV Last administered on 05/21/18at 05:07; Admin Dose 100 MLS/HR; Start 05/19/18 at 12:37 IV Flush (NS 3 ml) 3 ml PER PROTOCOL IV ; Start 05/19/18 at 13:00 Ondansetron HCl (Zofran Inj) 4 mg Q6H PRN IV NAUSEA/VOMITING; Start 05/19/18 at 13:00 Morphine Sulfate (morphine) 2 mg Q4H PRN IV .SEVERE PAIN 7-10; Start 05/19/18 at 13:00 Ferric Sodium Gluconate Complex 125 mg/Sodium Chloride 100 ml @ 100 mls/hr DAILY@1300 IVPB Last administered on 05/21/18at 13:23; Admin Dose 100 MLS/HR; Start 05/20/18 at 13:00; Stop 05/22/18 at 13:59 Propranolol HCl (Inderal) 10 mg BID PO Last administered on 05/21/18at 08:51; Admin Dose 10 MG; Start 05/20/18 at 10:00 Pantoprazole (Protonix Iv) 40 mg BID@06,18 IV Last administered on 05/21/18at 05:06; Admin Dose 40 MG; Start 05/20/18 at 10:00 [employer] May 21, 2018 14:12
[2018-05-21] MEDS ORDERED: FLUTICASONE 0.05% 16 GM NAS SPRAY NASAL PRN (15:00)
[2018-05-21] MEDS: SUCRALFATE (100 MG/ML) 10ML CUP PO SCH ×3 (15:08→21:18)
[2018-05-22] VITALS (11 sets, daily range): BP systolic 88–123; BP diastolic 51–68; PULSE 64–80; RESP 16–18
[2018-05-22] MEDS: SOD CHLORIDE 0.9% 1,000 ML IV SCH ×2 (01:01→10:37)
[2018-05-22] MEDS: PANTOPRAZOLE 40 MG INJ IV SCH ×2 (06:05→17:05)
[2018-05-22] MEDS: SUCRALFATE (100 MG/ML) 10ML CUP PO SCH ×4 (08:57→20:23)
[2018-05-22] MEDS: PROPRANOLOL 10 MG TAB PO SCH ×2 (08:57→20:22)
--- NOTE | 2018-05-22 12:09 | PN ---
Date/Time of Note Date/Time of Note DATE: 05/22/18 TIME: 11:59 Assessment/Plan VTE Prophylaxis Risk score (from [facility] [place])>0 risk: 1 SCD applied (from [facility] [place]): No SCD contraindicated: low risk/ambulating, patient refusal Pharmacological prophylaxis: NA/contraindicated Pharm contraindication: liver dx Lines/Catheters IV C[facility]ter Type (from [facility]): Peripheral IV Assessment/Plan Hospital Course SUBJECTIVE: Doing well. No acute distress. Denies any melena, hematochezia, h ematuria or other bleeding signs. OBJECTIVE: Vital signs-see below PHYSICAL EXAM: Constitutional: Well-developed, adequately built, lying in bed comfortably. Psych: nl mood/affect, no complaints Head: atraumatic, normocephalic Eyes: nl conjunctiva, nl sclera ENMT: mucosa pink and moist, nl external ears & nose Neck: non-tender, supple Respiratory: clear to auscultation, normal air movement Cardiovascular: nl pulses, regular rate and rhythm Gastrointestinal: non-tender, soft, bowel sounds active in all 4 quadrants. Musculoskeletal/extremities: nl extremities to inspection, motor strength equal bilaterally, no focal deficit. Normal pulses,no cyanosis, no edema. Neurological: Alert oriented 3,nl speech, nl strength Skin: nl turgor ASSESSMENT/PLAN: 52-year-old male with daily alcohol use, here with sudden onset of blackish/tarry stool x 3 day duration, found to have severe anemia.. 1. Upper GI bleed -Status post EGD 05/19/2018=> alcoholic gastritis, esophageal varices grade I-II -GI on board, recommended propranolol/PPI twice daily -Avoid NSAIDs -Alcohol cessation -Advance diet as tolerated 2. Acute on chronic anemia of alcoholic liver disease, Acute anemia secondary to upper GI bleed. -no further bleed -received 6 units prbc since admit+ 1 platelet.Today Hgb 7.5=.tx 1 more unit, give a dose of Lasix.. -Continue iron supplementation 3. Alcoholic liver disease/transaminitis/hepatitis C -Alcohol cessation advised. -Monitor LFTs -Hep C reactive, pending PCR=> management per cuff stitcher 4. Thrombocytopenia of alcoholic liver disease -Stable. Monitor 5. Alcohol abuse -Counseled on cessation DVT prophylaxis: SCDs Due to prophylaxis: Protonix CODE STATUS: Full code Diet: Full liquid diet. Disposition: . Follow-up with GI recommendations.if HH stable, likely dc plan in am w/oupt GI/Furnace [employer]er follow-up.. Patient was seen in collaboration with Result Diagram: 05/22/18 0530 05/22/18 0530 Results 24hrs Laboratory Tests Test 05/22/18 05:30 White Blood Count 6.8 Red Blood Count 2.56 L Hemoglobin 7.5 L Hematocrit 23.6 L Mean Corpuscular Volume 92.2 Mean Corpuscular Hemoglobin 29.3 Mean Corpuscular Hemoglobin Concent 31.8 L Red Cell Distribution Width 15.5 H Platelet Count 98 L Mean Platelet Volume 11.3 H Immature Granulocytes % 0.600 H Neutrophils % 52.6 Lymphocytes % 32.8 Monocytes % 11.4 H Eosinophils % 2.3 Basophils % 0.3 Nucleated Red Blood Cells % 0.0 Immature Granulocytes # 0.040 H Neutrophils # 3.6 Lymphocytes # 2.2 Monocytes # 0.8 Eosinophils # 0.2 Basophils # 0.0 Nucleated Red Blood Cells # 0.0 Sodium Level 143 Potassium Level 3.6 Chloride Level 115 H Carbon Dioxide Level 21 Anion Gap 7 Blood Urea Nitrogen 16 Creatinine 0.64 Est Glomerular Filtrat Rate mL/min > 60 Glucose Level 83 Calcium Level 7.6 L Total Bilirubin 0.8 Direct Bilirubin 0.00 Indirect Bilirubin 0.8 Aspartate Amino Transf (AST/SGOT) 162 H Alanine Aminotransferase (ALT/SGPT) 168 H Alkaline Phosphatase 44 Total Protein 4.6 L Albumin 2.1 L Globulin 2.50 Albumin/Globulin Ratio 0.84 Exam/Review of Systems Exam Vitals Vital Signs Date Temp Pulse Resp B/P (MAP) Pulse Ox O2 O2 Flow FiO2 Time Delivery Rate 05/22/18 64 08:17 05/22/18 98.7 16 116/61 98 Room Air 07:09 (79) 05/19/18 8.0 17:36 Intake and Output 05/21/18 05/21/18 05/22/18 1515:00 23:00 07:00 IntakeIntake Total 100 ml 2100 ml 1800 ml BalanceBalance 100 ml 2100 ml 1800 ml Results Results 24hrs Laboratory Tests Test 05/22/18 05:30 White Blood Count 6.8 Red Blood Count 2.56 L Hemoglobin 7.5 L Hematocrit 23.6 L Mean Corpuscular Volume 92.2 Mean Corpuscular Hemoglobin 29.3 Mean Corpuscular Hemoglobin Concent 31.8 L Red Cell Distribution Width 15.5 H Platelet Count 98 L Mean Platelet Volume 11.3 H Immature Granulocytes % 0.600 H Neutrophils % 52.6 Lymphocytes % 32.8 Monocytes % 11.4 H Eosinophils % 2.3 Basophils % 0.3 Nucleated Red Blood Cells % 0.0 Immature Granulocytes # 0.040 H Neutrophils # 3.6 Lymphocytes # 2.2 Monocytes # 0.8 Eosinophils # 0.2 Basophils # 0.0 Nucleated Red Blood Cells # 0.0 Sodium Level 143 Potassium Level 3.6 Chloride Level 115 H Carbon Dioxide Level 21 Anion Gap 7 Blood Urea Nitrogen 16 Creatinine 0.64 Est Glomerular Filtrat Rate mL/min > 60 Glucose Level 83 Calcium Level 7.6 L Total Bilirubin 0.8 Direct Bilirubin 0.00 Indirect Bilirubin 0.8 Aspartate Amino Transf (AST/SGOT) 162 H Alanine Aminotransferase (ALT/SGPT) 168 H Alkaline Phosphatase 44 Total Protein 4.6 L Albumin 2.1 L Globulin 2.50 Albumin/Globulin Ratio 0.84 Medications Medication Current Medications Sodium Chloride 1,000 ml @ 100 mls/hr Q10H IV Last administered on 05/22/18at 01:01; Admin Dose 100 MLS/HR; Start 05/19/18 at 12:37 IV Flush (NS 3 ml) 3 ml PER PROTOCOL IV ; Start 05/19/18 at 13:00 Ondansetron HCl (Zofran Inj) 4 mg Q6H PRN IV NAUSEA/VOMITING; Start 05/19/18 at 13:00 Morphine Sulfate (morphine) 2 mg Q4H PRN IV .SEVERE PAIN 7-10; Start 05/19/18 at 13:00 Ferric Sodium Gluconate Complex 125 mg/Sodium Chloride 100 ml @ 100 mls/hr DAILY@1300 IVPB Last administered on 05/21/18at 13:23; Admin Dose 100 MLS/HR; Start 05/20/18 at 13:00; Stop 05/22/18 at 13:59 Propranolol HCl (Inderal) 10 mg BID PO Last administered on 05/22/18at 08:57; Admin Dose 10 MG; Start 05/20/18 at 10:00 Pantoprazole (Protonix Iv) 40 mg BID@06,18 IV Last administered on 05/22/18at 06:05; Admin Dose 40 MG; Start 05/20/18 at 10:00 Sucralfate (Carafate Susp) 1 gm QID PO Last administered on 05/22/18at 08:57; Admin Dose 1 GM; Start 05/21/18 at 14:30 Fluticasone Propionate (Flonase 0.05% Nasal) 1 spray DAILY PRN NASAL nasal congestion; Start 05/21/18 at 15:00 VASILE BAH NP May 22, 2018 12:09
[2018-05-22] MEDS ORDERED: FUROSEMIDE 20 MG INJ IV ONE (12:30)
[2018-05-22] MEDS: SOD FERRIC GLUC COMPLX 125 MG in SOD CHLORIDE 0.9% 100 ML IVPB SCH (13:35)
--- NOTE | 2018-05-22 13:53 | PN ---
Date/Time of Note Date/Time of Note DATE: 05/22/18 TIME: 13:40 Assessment/Plan VTE Prophylaxis Risk score (from Ns)>0 risk: 1 SCD applied (from Ns): No SCD contraindicated: low risk/ambulating Pharmacological prophylaxis: NA/contraindicated Pharm contraindication: bleeding Lines/Catheters IV C[facility] Type (from [facility]): Peripheral IV Assessment/Plan Assessment/Plan Assessment: Melena - resolved Anemia S/p EGD 05/19/18 -Hemorrhagic alcoholic gastritis -Esophageal varices Elevated Lft's Excessive ETOH use Plan: Continue Protonix and Carafate Propranolol 10 mg BID Iron supplements Hep C PCR - pending - if positive will treat as an OP Repeat EGD in 6 months for surveillance Patient seen in collaboration with Dr. Stephens Subjective: Patient is doing well. Denies abd pain, nausea or vomiting. Tolerating diet well. Hemoglobin is lower today 7.5. No evidence of GI bleeding. Patient is on Iron supplements. Awaiting for results of Hep C PCR and if positive will treat the patient as an PO. Constitutional: alert Head: normocephalic Eyes: nl conjunctiva ENMT: nl external ears & nose Neck: supple Respiratory: clear to auscultation, normal air movement Cardiovascular: regular rate and rhythm Gastrointestinal: soft, non-tender, bowel sounds Result Diagram: 05/22/18 0530 05/22/18 0530 Results 24hrs Laboratory Tests Test 05/22/18 05:30 White Blood Count 6.8 Red Blood Count 2.56 L Hemoglobin 7.5 L Hematocrit 23.6 L Mean Corpuscular Volume 92.2 Mean Corpuscular Hemoglobin 29.3 Mean Corpuscular Hemoglobin Concent 31.8 L Red Cell Distribution Width 15.5 H Platelet Count 98 L Mean Platelet Volume 11.3 H Immature Granulocytes % 0.600 H Neutrophils % 52.6 Lymphocytes % 32.8 Monocytes % 11.4 H Eosinophils % 2.3 Basophils % 0.3 Nucleated Red Blood Cells % 0.0 Immature Granulocytes # 0.040 H Neutrophils # 3.6 Lymphocytes # 2.2 Monocytes # 0.8 Eosinophils # 0.2 Basophils # 0.0 Nucleated Red Blood Cells # 0.0 Sodium Level 143 Potassium Level 3.6 Chloride Level 115 H Carbon Dioxide Level 21 Anion Gap 7 Blood Urea Nitrogen 16 Creatinine 0.64 Est Glomerular Filtrat Rate mL/min > 60 Glucose Level 83 Calcium Level 7.6 L Total Bilirubin 0.8 Direct Bilirubin 0.00 Indirect Bilirubin 0.8 Aspartate Amino Transf (AST/SGOT) 162 H Alanine Aminotransferase (ALT/SGPT) 168 H Alkaline Phosphatase 44 Total Protein 4.6 L Albumin 2.1 L Globulin 2.50 Albumin/Globulin Ratio 0.84 Exam/Review of Systems Exam Vitals Vital Signs Date Temp Pulse Resp B/P (MAP) Pulse Ox O2 O2 Flow FiO2 Time Delivery Rate 05/22/18 68 12:20 05/22/18 98.7 18 115/63 97 Room Air 12:05 (80) 05/19/18 8.0 17:36 Intake and Output 05/21/18 05/21/18 05/22/18 1515:00 23:00 07:00 IntakeIntake Total 100 ml 2100 ml 1800 ml BalanceBalance 100 ml 2100 ml 1800 ml Results Results 24hrs Laboratory Tests Test 05/22/18 05:30 White Blood Count 6.8 Red Blood Count 2.56 L Hemoglobin 7.5 L Hematocrit 23.6 L Mean Corpuscular Volume 92.2 Mean Corpuscular Hemoglobin 29.3 Mean Corpuscular Hemoglobin Concent 31.8 L Red Cell Distribution Width 15.5 H Platelet Count 98 L Mean Platelet Volume 11.3 H Immature Granulocytes % 0.600 H Neutrophils % 52.6 Lymphocytes % 32.8 Monocytes % 11.4 H Eosinophils % 2.3 Basophils % 0.3 Nucleated Red Blood Cells % 0.0 Immature Granulocytes # 0.040 H Neutrophils # 3.6 Lymphocytes # 2.2 Monocytes # 0.8 Eosinophils # 0.2 Basophils # 0.0 Nucleated Red Blood Cells # 0.0 Sodium Level 143 Potassium Level 3.6 Chloride Level 115 H Carbon Dioxide Level 21 Anion Gap 7 Blood Urea Nitrogen 16 Creatinine 0.64 Est Glomerular Filtrat Rate mL/min > 60 Glucose Level 83 Calcium Level 7.6 L Total Bilirubin 0.8 Direct Bilirubin 0.00 Indirect Bilirubin 0.8 Aspartate Amino Transf (AST/SGOT) 162 H Alanine Aminotransferase (ALT/SGPT) 168 H Alkaline Phosphatase 44 Total Protein 4.6 L Albumin 2.1 L Globulin 2.50 Albumin/Globulin Ratio 0.84 Medications Medication Current Medications IV Flush (NS 3 ml) 3 ml PER PROTOCOL IV ; Start 05/19/18 at 13:00 Ondansetron HCl (Zofran Inj) 4 mg Q6H PRN IV NAUSEA/VOMITING; Start 05/19/18 at 13:00 Morphine Sulfate (morphine) 2 mg Q4H PRN IV .SEVERE PAIN 7-10; Start 05/19/18 at 13:00 Ferric Sodium Gluconate Complex 125 mg/Sodium Chloride 100 ml @ 100 mls/hr DAILY@1300 IVPB Last administered on 05/21/18at 13:23; Admin Dose 100 MLS/HR; Start 05/20/18 at 13:00; Stop 05/22/18 at 13:59 Propranolol HCl (Inderal) 10 mg BID PO Last administered on 05/22/18at 08:57; Admin Dose 10 MG; Start 05/20/18 at 10:00 Pantoprazole (Protonix Iv) 40 mg BID@06,18 IV Last administered on 05/22/18at 06:05; Admin Dose 40 MG; Start 05/20/18 at 10:00 Sucralfate (Carafate Susp) 1 gm QID PO Last administered on 05/22/18at 12:48; Admin Dose 1 GM; Start 05/21/18 at 14:30 Fluticasone Propionate (Flonase 0.05% Nasal) 1 spray DAILY PRN NASAL nasal congestion; Start 05/21/18 at 15:00 Ferric Sodium Gluconate Complex 125 mg/Sodium Chloride 100 ml @ 100 mls/hr DAILY@1300 IVPB ; Start 05/23/18 at 13:00; Stop 05/23/18 at 13:59 RAHUL CHANEY NP May 22, 2018 13:50
[2018-05-23] VITALS (11 sets, daily range): BP systolic 97–115; BP diastolic 56–66; PULSE 74–87; RESP 17–20
[2018-05-23] MEDS: PANTOPRAZOLE 40 MG INJ IV SCH ×2 (06:15→17:59)
[2018-05-23] MEDS: SUCRALFATE (100 MG/ML) 10ML CUP PO SCH ×4 (09:36→21:36)
[2018-05-23] MEDS: PROPRANOLOL 10 MG TAB PO SCH ×2 (09:37→21:36)
--- NOTE | 2018-05-23 09:50 | PN ---
Date/Time of Note Date/Time of Note DATE: 05/23/18 TIME: 09:47 Assessment/Plan VTE Prophylaxis Risk score (from Ns)>0 risk: 1 [place] [facility] [place] Yes Pharmacological prophylaxis: NA/contraindicated Pharm contraindication: liver dx Lines/Catheters IV C[facility]ter Type (from [facility]): Peripheral IV Assessment/Plan Hospital Course SUBJECTIVE: Patient with low-grade fevers, he is also noted with a severe tenderness/edema on right upper extremity, there peripheral IV was in place before. OBJECTIVE: Vital signs-see below PHYSICAL EXAM: Constitutional: Well-developed, adequately built, lying in bed comfortably. Psych: nl mood/affect, no complaints Head: atraumatic, normocephalic Eyes: nl conjunctiva, nl sclera ENMT: mucosa pink and moist, nl external ears & nose Neck: non-tender, supple Respiratory: clear to auscultation, normal air movement Cardiovascular: nl pulses, regular rate and rhythm Gastrointestinal: non-tender, soft, bowel sounds active in all 4 quadrants. Musculoskeletal/extremities:+Edema/tenderness Right UE. nl extremities to inspection, motor strength equal bilaterally, no focal deficit. Normal pulses,no cyanosis, no edema. Neurological: Alert oriented 3,nl speech, nl strength Skin: nl turgor ASSESSMENT/PLAN: 52-year-old male with daily alcohol use, here with sudden onset of blackish/tarry stool x 3 day duration, found to have severe anemia.. 1. Upper GI bleed -Status post EGD 05/19/2018=> alcoholic gastritis, esophageal varices grade I-II -GI on board, recommended propranolol/PPI twice daily -Avoid NSAIDs -Alcohol cessation -Advance diet as tolerated 2. Acute on chronic anemia of alcoholic liver disease, Acute anemia secondary to upper GI bleed. -no further bleed -Patient is stable without any further drop. -Continue iron supplementation 3. Alcoholic liver disease/transaminitis/hepatitis C -Alcohol cessation advised. -Monitor LFTs -Hep C reactive, pending PCR=> management per automotive consultant=> if positive, can be done as outpatient. 4. Thrombocytopenia of alcoholic liver disease -Stable. Monitor 5. Alcohol abuse -Counseled on cessation 6. Thrombophlebitis of right upper extremity secondary to catheter placed. -Obtain duplex to rule out DVT. Start ibuprofen and Warm compress. 7. SIRS, likely secondary to #6. -Treatment as above. DVT prophylaxis: SCDs Due to prophylaxis: Protonix CODE STATUS: Full code Diet: Full liquid diet. Disposition: Follow-up ultrasound. Patient was seen in collaboration with Result Diagram: 05/23/1836 05/23/18 0536 Results 24hrs Laboratory Tests Test 05/23/18 05:36 05/23/18 07:53 White Blood Count 8.4 # Red Blood Count 2.57 L Hemoglobin 7.7 L Hematocrit 23.5 L Mean Corpuscular Volume 91.4 Mean Corpuscular Hemoglobin 30.0 Mean Corpuscular Hemoglobin Concent 32.8 Red Cell Distribution Width 15.3 H Platelet Count 107 L Mean Platelet Volume 11.5 H Immature Granulocytes % 0.800 H Neutrophils % 58.8 Lymphocytes % 25.5 Monocytes % 12.6 H Eosinophils % 2.1 Basophils % 0.2 Nucleated Red Blood Cells % 0.0 Immature Granulocytes # 0.070 H Neutrophils # 4.9 Lymphocytes # 2.1 Monocytes # 1.1 H Eosinophils # 0.2 Basophils # 0.0 Nucleated Red Blood Cells # 0.0 Sodium Level 138 Potassium Level 3.6 Chloride Level 110 Carbon Dioxide Level 25 Anion Gap 3 L Blood Urea Nitrogen 22 H Creatinine 0.66 Est Glomerular Filtrat Rate mL/min > 60 Glucose Level 101 Calcium Level 7.7 L Lab Scanned Report BLOOD TRANSFUSION Exam/Review of Systems Exam Vitals Vital Signs Date Temp Pulse Resp B/P (MAP) Pulse Ox O2 O2 Flow FiO2 Time Delivery Rate 05/23/18 83 08:01 05/23/18 100.8 19 109/56 98 07:37 (73) 05/22/18 Room Air 15:32 05/19/18 8.0 17:36 Intake and Output 05/22/18 05/22/18 05/23/18 1515:00 23:00 07:00 IntakeIntake Total 100 ml 1500 ml 900 ml BalanceBalance 100 ml 1500 ml 900 ml Results Results 24hrs Laboratory Tests Test 05/23/18 05:36 05/23/18 07:53 White Blood Count 8.4 # Red Blood Count 2.57 L Hemoglobin 7.7 L Hematocrit 23.5 L Mean Corpuscular Volume 91.4 Mean Corpuscular Hemoglobin 30.0 Mean Corpuscular Hemoglobin Concent 32.8 Red Cell Distribution Width 15.3 H Platelet Count 107 L Mean Platelet Volume 11.5 H Immature Granulocytes % 0.800 H Neutrophils % 58.8 Lymphocytes % 25.5 Monocytes % 12.6 H Eosinophils % 2.1 Basophils % 0.2 Nucleated Red Blood Cells % 0.0 Immature Granulocytes # 0.070 H Neutrophils # 4.9 Lymphocytes # 2.1 Monocytes # 1.1 H Eosinophils # 0.2 Basophils # 0.0 Nucleated Red Blood Cells # 0.0 Sodium Level 138 Potassium Level 3.6 Chloride Level 110 Carbon Dioxide Level 25 Anion Gap 3 L Blood Urea Nitrogen 22 H Creatinine 0.66 Est Glomerular Filtrat Rate mL/min > 60 Glucose Level 101 Calcium Level 7.7 L Lab Scanned Report BLOOD TRANSFUSION Medications Medication Current Medications IV Flush (NS 3 ml) 3 ml PER PROTOCOL IV ; Start 05/19/18 at 13:00 Ondansetron HCl (Zofran Inj) 4 mg Q6H PRN IV NAUSEA/VOMITING; Start 05/19/18 at 13:00 Morphine Sulfate (morphine) 2 mg Q4H PRN IV .SEVERE PAIN 7-10; Start 05/19/18 at 13:00 Propranolol HCl (Inderal) 10 mg BID PO Last administered on 05/22/18at 08:57; Admin Dose 10 MG; Start 05/20/18 at 10:00 Pantoprazole (Protonix Iv) 40 mg BID@06,18 IV Last administered on 05/23/18at 06:15; Admin Dose 40 MG; Start 05/20/18 at 10:00 Sucralfate (Carafate Susp) 1 gm QID PO Last administered on 05/22/18at 20:23; Admin Dose 1 GM; Start 05/21/18 at 14:30 Fluticasone Propionate (Flonase 0.05% Nasal) 1 spray DAILY PRN NASAL nasal congestion Last administered on 05/22/18at 17:19; Admin Dose 1 SPRAY; Start 05/21/18 at 15:00 Ferric Sodium Gluconate Complex 125 mg/Sodium Chloride 100 ml @ 100 mls/hr DAILY@1300 IVPB ; Start 05/23/18 at 13:00; Stop 05/23/18 at 13:59 VASILE BAH NP May 23, 2018 09:50
[2018-05-23] MEDS ORDERED: ACETAMINOPHEN 325 MG TAB PO ONE (10:00)
[2018-05-23] MEDS ORDERED: SOD FERRIC GLUC COMPLX 125 MG in SOD CHLORIDE 0.9% 100 ML IVPB SCH (13:00)
[2018-05-23] MEDS: IBUPROFEN 600 MG TAB PO SCH ×2 (13:01→18:00)
--- NOTE | 2018-05-23 14:30 | PN ---
Date/Time of Note Date/Time of Note DATE: 05/23/18 TIME: 14:22 Assessment/Plan VTE Prophylaxis Risk score (from Ns)>0 risk: 1 SCD applied (from Ns): Yes Pharmacological prophylaxis: other (scds) Lines/Catheters IV [facility]atheter Type (from [facility]): Peripheral IV Assessment/Plan Hospital Course Assessment/Plan Assessment: Melena - resolved Anemia- stable S/p EGD 05/19/18 -Hemorrhagic alcoholic gastritis -Esophageal varices Liver disease- 04/30 to ETOH and/or Hep C- RNA pending Hepatitis C AB- positive - If RNA elevated plan to treat with Mavyret as patient is Child-[place] Class A- compensated liver cirrhosis Thrombocytopenia Elevated LFT's -ALD v Hep C AB positive Excessive ETOH use Thrombophlebitis of right upper extremity secondary to catheter placed 2 cm echogenic lesion in the right hepatic lobe -Likely representing a hemangioma. Plan: AFP tomorrow Continue Protonix and Carafate Propranolol 10 mg BID Iron supplements Hep C RNA pending Repeat EGD in 6 months for pharmacist critical care labs Patient seen in collaboration with Dr. Stephens/Rodrigo Subjective: No over night events, Hep C RNA pending if positive plan to treat as an out-pt No c/o n/v or abd pain. Hgb remains low today but stable. Maintain close observation PHYSICAL EXAMINATION: GENERAL: Well developed, well nourished, alert & oriented x 3, in no acute distress SKIN: No lesions, no stigmata chronic liver disease, no evidence of bleeding diathesis CHEST: Inspection within normal limits. CARDIOVASCULAR: Heart: Regular rate and rhythm, RESPIRATORY: Lungs clear to auscultation GASTROINTESTINAL AND LIVER: Abdomen: Soft, non tenderness, non-distended, no hernias, no masses, no organomegaly, no ascites, no guarding, no rebound tenderness, normoactive bowel sounds. Rectal: Deferred. Result Diagram: 05/23/1836 05/23/18535 Results 24hrs Laboratory Tests Test 05/23/18 05:36 05/23/18 07:53 White Blood Count 8.4 # Red Blood Count 2.57 L Hemoglobin 7.7 L Hematocrit 23.5 L Mean Corpuscular Volume 91.4 Mean Corpuscular Hemoglobin 30.0 Mean Corpuscular Hemoglobin Concent 32.8 Red Cell Distribution Width 15.3 H Platelet Count 107 L Mean Platelet Volume 11.5 H Immature Granulocytes % 0.800 H Neutrophils % 58.8 Lymphocytes % 25.5 Monocytes % 12.6 H Eosinophils % 2.1 Basophils % 0.2 Nucleated Red Blood Cells % 0.0 Immature Granulocytes # 0.070 H Neutrophils # 4.9 Lymphocytes # 2.1 Monocytes # 1.1 H Eosinophils # 0.2 Basophils # 0.0 Nucleated Red Blood Cells # 0.0 Sodium Level 138 Potassium Level 3.6 Chloride Level 110 Carbon Dioxide Level 25 Anion Gap 3 L Blood Urea Nitrogen 22 H Creatinine 0.66 Est Glomerular Filtrat Rate mL/min > 60 Glucose Level 101 Calcium Level 7.7 L Lab Scanned Report BLOOD TRANSFUSION Exam/Review of Systems Exam Vitals Vital Signs Date Temp Pulse Resp B/P (MAP) Pulse Ox O2 O2 Flow FiO2 Time Delivery Rate 05/23/18 99.0 12:45 05/23/18 86 12:01 05/23/18 19 115/66 98 11:17 (82) 05/22/18 Room Air 15:32 05/19/18 8.0 17:36 Intake and Output 05/22/18 05/22/18 05/23/18 1515:00 23:00 07:00 IntakeIntake Total 100 ml 1500 ml 900 ml BalanceBalance 100 ml 1500 ml 900 ml Results Results 24hrs Laboratory Tests Test 05/23/18 05:36 05/23/18 07:53 White Blood Count 8.4 # Red Blood Count 2.57 L Hemoglobin 7.7 L Hematocrit 23.5 L Mean Corpuscular Volume 91.4 Mean Corpuscular Hemoglobin 30.0 Mean Corpuscular Hemoglobin Concent 32.8 Red Cell Distribution Width 15.3 H Platelet Count 107 L Mean Platelet Volume 11.5 H Immature Granulocytes % 0.800 H Neutrophils % 58.8 Lymphocytes % 25.5 Monocytes % 12.6 H Eosinophils % 2.1 Basophils % 0.2 Nucleated Red Blood Cells % 0.0 Immature Granulocytes # 0.070 H Neutrophils # 4.9 Lymphocytes # 2.1 Monocytes # 1.1 H Eosinophils # 0.2 Basophils # 0.0 Nucleated Red Blood Cells # 0.0 Sodium Level 138 Potassium Level 3.6 Chloride Level 110 Carbon Dioxide Level 25 Anion Gap 3 L Blood Urea Nitrogen 22 H Creatinine 0.66 Est Glomerular Filtrat Rate mL/min > 60 Glucose Level 101 Calcium Level 7.7 L Lab Scanned Report BLOOD TRANSFUSION Medications Medication Current Medications IV Flush (NS 3 ml) 3 ml PER PROTOCOL IV ; Start 05/19/18 at 13:00 Ondansetron HCl (Zofran Inj) 4 mg Q6H PRN IV NAUSEA/VOMITING; Start 05/19/18 at 13:00 Morphine Sulfate (morphine) 2 mg Q4H PRN IV .SEVERE PAIN 7-10; Start 05/19/18 at 13:00 Propranolol HCl (Inderal) 10 mg BID PO Last administered on 05/23/18at 09:37; Admin Dose 10 MG; Start 05/20/18 at 10:00 Pantoprazole (Protonix Iv) 40 mg BID@,18 IV Last administered on 05/23/18 06:15; Admin Dose 40 MG; Start 05/20/18 at 10:00 Sucralfate (Carafate Susp) 1 gm QID PO Last administered on 05/23/18 13:01; Admin Dose 1 GM; Start 05/21/18 at 14:30 Fluticasone Propionate (Flonase 0.05% Nasal) 1 spray DAILY PRN NASAL nasal congestion Last administered on 05/22/18 17:19; Admin Dose 1 SPRAY; Start 05/21/18 at 15:00 Ibuprofen (Motrin) 600 mg Q6 PO Last administered on 05/23/18 13:01; Admin Dos e 600 MG; Start 05/23/18 at 12:00 ALTON ENGLAND May 23, 2018 14:30
[2018-05-24] VITALS (19 sets, daily range): BP systolic 95–136; BP diastolic 57–75; PULSE 71–103; RESP 15–27
[2018-05-24] MEDS: IBUPROFEN 600 MG TAB PO SCH ×2 (00:27→06:00)
[2018-05-24] MEDS: PANTOPRAZOLE 40 MG INJ IV SCH ×2 (06:02→18:12)
[2018-05-24] MEDS ORDERED: PROPOFOL 200 MG INJ ONE (07:00)
[2018-05-24] MEDS ORDERED: SOD CHLORIDE 0.9% 250 ML IV* ONE (07:45)
[2018-05-24] MEDS: PROPRANOLOL 10 MG TAB PO SCH ×2 (08:00→20:39)
[2018-05-24] MEDS: SUCRALFATE (100 MG/ML) 10ML CUP PO SCH ×4 (08:00→20:39)
[2018-05-24] MEDS ORDERED: FUROSEMIDE (10 MG/ML) IV SYG IV ONE (09:00)
[2018-05-24] MEDS ORDERED: FUROSEMIDE 40 MG INJ IV SCH (09:00)
[2018-05-24] MEDS: SOD CHLORIDE 0.9% 1,000 ML IV SCH ×2 (09:20→16:19)
--- NOTE | 2018-05-24 09:45 | PN ---
Date/Time of Note Date/Time of Note DATE: 05/24/18 TIME: 09:39 Assessment/Plan VTE Prophylaxis Risk score (from Ns)>0 risk: 2 SCD applied (from Ns): Yes Pharmacological prophylaxis: NA/contraindicated Pharm contraindication: bleeding Lines/Catheters [facility] [place] Assessment/Plan Hospital Course SUBJECTIVE: This morning, patient with bouts of hematemesis/hematochezia. No abd pain.. RUE swelling resolving..No further pain. OBJECTIVE: Vital signs-see below PHYSICAL EXAM: Constitutional: Well-developed, adequately built, lying in bed comfortably. Psych: nl mood/affect, no complaints Head: atraumatic, normocephalic Eyes: nl conjunctiva, nl sclera ENMT: mucosa pink and moist, nl external ears & nose Neck: non-tender, supple Respiratory: clear to auscultation, normal air movement Cardiovascular: nl pulses, regular rate and rhythm Gastrointestinal: non-tender, soft, bowel sounds active in all 4 quadrants. Musculoskeletal/extremities:+Edema/tenderness Right UE. nl extremities to inspection, motor strength equal bilaterally, no focal deficit. Normal pulses,no cyanosis, no edema. Neurological: Alert oriented 3,nl speech, nl strength Skin: nl turgor ASSESSMENT/PLAN: 52-year-old male with daily alcohol use, here with sudden onset of blackish/tarry stool x 3 day duration, found to have severe anemia..underwent EGD w/ finding of alcoholic gastritis/grade I-II variceal bleed, now with both hematemesis/hematochezia. 1.GI bleed,-Status post EGD 05/19/2018=> alcoholic gastritis, esophageal varices grade I-II -Today w/both hematemesis and hematochezia=>H&H dropped to 5.4/16.6. Pt would need to go back to GI Lab=>message left w/GI team. -N.p.o., transfuse blood -Stop NSAIDs -Alcohol cessation 2. Acute blood loss anemia secondary to GI bleed onchronic anemia of alcoholic liver disease -Transfuse 2 units blood stat, monitor H&H closely. -Continue iron 3. Alcoholic liver disease/transaminitis/hepatitis C -Alcohol cessation advised. -Monitor LFTs -Hep C reactive, pending PCR=> management per yard truck driver=> if positive, can be done as outpatient. 4. Thrombocytopenia of alcoholic liver disease -Stable. Monitor 5. Alcohol abuse -Counseled on cessation 6. Thrombophlebitis of right upper extremity secondary to catheter placed. -Venous duplex with no evidence of DVT -This is a self-limiting condition, as well as patient with resolving symptoms. DVT prophylaxis: SCDs Due to prophylaxis: Protonix CODE STATUS: Full code Diet: Full liquid diet. Disposition: Patient had GI reevaluation as today he is with hematochezia/hematemesis, likely requiring repeat EGD/colonoscopy evaluation. Transfuse blood to keep a safer level H&H. Follow-up GI recommendations. Patient was seen in collaboration with Result Diagram: 05/24/18 0536 05/24/18 0536 Results 24hrs Laboratory Tests Test 05/24/18 05:36 05/24/18 07:07 White Blood Count 11.3 #H Red Blood Count 1.76 #L Hemoglobin 5.4 #*L Hematocrit 16.6 #L Mean Corpuscular Volume 94.3 Mean Corpuscular Hemoglobin 30.7 Mean Corpuscular Hemoglobin Concent 32.5 Red Cell Distribution Width 17.1 H Platelet Count 120 L Mean Platelet Volume 11.5 H Immature Granulocytes % 1.400 H Neutrophils % Segmented Neutrophils % (Manual) 72 Band Neutrophils % (Manual) 5 H Lymphocytes % Lymphocytes % (Manual) 14 L Monocytes % Monocytes % (Manual) 6 Eosinophils % Eosinophils % (Manual) 2 Basophils % Basophils % (Manual) 1 Nucleated Red Blood Cells % 1 H Immature Granulocytes # 0.160 H Neutrophils # Neutrophils # (Manual) 8.2 H Band Neutrophils # 0.5 Lymphocytes (Manual) 1.5 Lymphocytes # Monocytes # Monocytes # (Manual) 0.6 Eosinophils # Basophils # Basophils # (Manual) 0.1 H Nucleated Red Blood Cells # Platelet Estimate DECREASED Giant Platelets 3 H Polychromasia 3+ Anisocytosis 2+ Microcytosis 1+ Target Cells 1+ Sodium Level 138 Potassium Level 3.9 Chloride Level 109 Carbon Dioxide Level 27 Anion Gap 2 L Blood Urea Nitrogen 28 H Creatinine 0.75 Est Glomerular Filtrat Rate mL/min > 60 Glucose Level 97 Calcium Level 7.5 L Alpha Fetoprotein 4.16 Lab Scanned Report BLOOD TRANSFUSION Exam/Review of Systems Exam Vitals Vital Signs Date Temp Pulse Resp B/P (MAP) Pulse Ox O2 O2 Flow FiO2 Time Delivery Rate 05/24/18 98 08:01 05/24/18 98.4 18 115/63 96 07:18 (80) 05/24/18 Room Air 04:43 Intake and Output 05/23/18 05/23/18 05/24/18 1515:00 23:00 07:00 IntakeIntake Total 1100 ml 500 ml BalanceBalance 1100 ml 500 ml Results Results 24hrs Laboratory Tests Test 05/24/18 05:36 05/24/18 07:07 White Blood Count 11.3 #H Red Blood Count 1.76 #L Hemoglobin 5.4 #*L Hematocrit 16.6 #L Mean Corpuscular Volume 94.3 Mean Corpuscular Hemoglobin 30.7 Mean Corpuscular Hemoglobin Concent 32.5 Red Cell Distribution Width 17.1 H Platelet Count 120 L Mean Platelet Volume 11.5 H Immature Granulocytes % 1.400 H Neutrophils % Segmented Neutrophils % (Manual) 72 Band Neutrophils % (Manual) 5 H Lymphocytes % Lymphocytes % (Manual) 14 L Monocytes % Monocytes % (Manual) 6 Eosinophils % Eosinophils % (Manual) 2 Basophils % Basophils % (Manual) 1 Nucleated Red Blood Cells % 1 H Immature Granulocytes # 0.160 H Neutrophils # Neutrophils # (Manual) 8.2 H Band Neutrophils # 0.5 Lymphocytes (Manual) 1.5 Lymphocytes # Monocytes # Monocytes # (Manual) 0.6 Eosinophils # Basophils # Basophils # (Manual) 0.1 H Nucleated Red Blood Cells # Platelet Estimate DECREASED Giant Platelets 3 H Polychromasia 3+ Anisocytosis 2+ Microcytosis 1+ Target Cells 1+ Sodium Level 138 Potassium Level 3.9 Chloride Level 109 Carbon Dioxide Level 27 Anion Gap 2 L Blood Urea Nitrogen 28 H Creatinine 0.75 Est Glomerular Filtrat Rate mL/min > 60 Glucose Level 97 Calcium Level 7.5 L Alpha Fetoprotein 4.16 Lab Scanned Report BLOOD TRANSFUSION Medications Medication Current Medications IV Flush (NS 3 ml) 3 ml PER PROTOCOL IV ; Start 05/19/18 at 13:00 Ondansetron HCl (Zofran Inj) 4 mg Q6H PRN IV NAUSEA/VOMITING; Start 05/19/18 at 13:00 Morphine Sulfate (morphine) 2 mg Q4H PRN IV .SEVERE PAIN 7-10; Start 05/19/18 at 13:00 Propranolol HCl (Inderal) 10 mg BID PO Last administered on 05/24/18at 08:00; Admin Dose 10 MG; Start 05/20/18 at 10:00 Pantoprazole (Protonix Iv) 40 mg BID@06,18 IV Last administered on 05/24/18at 06:02; Admin Dose 40 MG; Start 05/20/18 at 10:00 Sucralfate (Carafate Susp) 1 gm QID PO Last administered on 05/24/18at 08:00; Admin Dose 1 GM; Start 05/21/18 at 14:30 Sodium Chloride 1,000 ml @ 125 mls/hr Q8H IV Last administered on 05/24/18at 09:20; Admin Dose 125 MLS/HR; Start 05/24/18 at 09:00 Furosemide (Lasix) 40 mg ONCE IV ; Start 05/24/18 at 09:00; Stop 05/24/18 at 10:00 VASILE BAH NP May 24, 2018 09:45
[2018-05-24] MEDS ORDERED: ACETAMINOPHEN 325 MG TAB PO PRN (10:30)
--- NOTE | 2018-05-24 16:52 | PREAC ---
Date/Time of Note Date/Time of Note DATE: 05/24/18 TIME: 16:50 Anesthesia Eval and Record Evaluation Time Pre-Procedure Interview DATE: 05/24/18 TIME: 16:50 Age 52 Sex male NPO: 8 hrs Preoperative diagnosis UPPER GI BLEED Planned procedure EGD Past Medical History Past Medical History: Includes Hepatic: Alcohol abuse, Cirrhosis Heme: Anemia Surgery & Anesthesia Issues No known issue Meds Anticoagulation: No Beta Caty within 24 hr: No Reason Beta Caty not given: Pt. not on B-Caty No Active Prescriptions or Reported Meds Current Medications IV Flush (NS 3 ml) 3 ml PER PROTOCOL IV ; Start 05/19/18 at 13:00 Ondansetron HCl (Zofran Inj) 4 mg Q6H PRN IV NAUSEA/VOMITING Last administered on 05/24/18at 10:46; Admin Dose 4 MG; Start 05/19/18 at 13:00 Morphine Sulfate (morphine) 2 mg Q4H PRN IV .SEVERE PAIN 7-10; Start 05/19/18 at 13:00 Propranolol HCl (Inderal) 10 mg BID PO Last administered on 05/24/18at 08:00; Admin Dose 10 MG; Start 05/20/18 at 10:00 Pantoprazole (Protonix Iv) 40 mg BID@06,18 IV Last administered on 05/24/18at 06:02; Admin Dose 40 MG; Start 05/20/18 at 10:00 Sucralfate (Carafate Susp) 1 gm QID PO Last administered on 05/24/18at 12:41; Admin Dose 1 GM; Start 05/21/18 at 14:30 Sodium Chloride 1,000 ml @ 125 mls/hr Q8H IV Last administered on 05/24/18at 09:20; Admin Dose 125 MLS/HR; Start 05/24/18 at 09:00 Acetaminophen (Tylenol Tab) 325 mg Q6H PRN PO MILD PAIN(1-3)OR ELEVATED TEMP; Start 05/24/18 at 10:30 Meds reviewed: Yes Allergies Coded Allergies: No Known Allergy (Unverified , 05/19/18) Allergies Reviewed: Yes Labs/Studies Labs Reviewed: Reviewed by anesthesiologist Result Diagram: 05/24/1817 05/24/18 0536 Laboratory Tests 05/24/18 05:36 05/24/18 09:17 Blood Bank Test 05/24/18 08:07 Antibody Screen NEGATIVE Blood Product Summary Counts Blood Type O POSITIVE Crossmatch Red Blood Cells test: Negative Studies: ECG Pre-procedure Exam Last vitals Vital Signs Date Temp Pulse Resp B/P (MAP) Pulse Ox O2 O2 Flow FiO2 Time Delivery Rate 05/24/18 98.4 95 24 129/71 Room Air 16:05 (90) 05/24/18 96 15:19 Airway: Adequate mouth opening, Adequate thyromental dist Mallampati: Mallampati II Teeth: Normal Lung: Normal Heart: Normal ASA Physical Status ASA physical status: 3 Emergency: None Planned Anesthetic General/MAC: MAC Planned Pain Management Parenteral pain med Pre-operative Attestations Prior to commencing anesthesia and surgery, the patient was re-evaluated, there was verification of: *The patient's identity *The results of appropriate recent lab work and preoperative vital signs *The above evaluation not changing prior to induction *Anesthetic plan, risk benefits, alternative and complications discussed with patient/family; questions answered; patient/family understands, accepts and wishes to proceed. HESHAM BAHENA May 24, 2018 16:52
[2018-05-24] MEDS ORDERED: PROPOFOL 60 ML ONE (16:54)
[2018-05-24] MEDS ORDERED: LIDOCAINE 2% (SDV) 5 ML INJ ONE (16:55)
[2018-05-24] MEDS ORDERED: ONDANSETRON 4 MG INJ IV PRN (17:00)
[2018-05-24] MEDS ORDERED: EPHEDrine SULFATE 50 MG/5 ML SYG IV PRN (17:00)
[2018-05-24] MEDS ORDERED: LABETALOL HCL 20MG INJ IV PRN (17:00)
[2018-05-24] MEDS ORDERED: hydrALAzine 20 MG INJ IV PRN (17:00)
[2018-05-24] MEDS ORDERED: FENTAnyl 50 MCG/ML VIAL IV PRN (17:00)
--- NOTE | 2018-05-24 17:18 | PAC ---
Date/Time of Note Date/Time of Note DATE: 05/24/18 TIME: 17:17 Post-Anesthesia Notes Post-Anesthesia Note Last documented vital signs Vital Signs Date Temp Pulse Resp B/P (MAP) Pulse Ox O2 O2 Flow FiO2 Time Delivery Rate 05/24/18 98.4 95 24 129/71 99 Room Air 1718 (90) 05/24/18 96 15:19 Activity: WNL Respiratory function: WNL Cardiovascular function: WNL Mental status: Baseline Pain reasonably controlled: Yes Hydration appropriate: Yes Nausea/Vomiting absent: Yes HESHAM BAHENA May 24, 2018 17:18
[2018-05-24] MEDS: FENTAnyl 50 MCG/ML VIAL IV PRN ×3 (17:27→19:36)
[2018-05-25] VITALS (9 sets, daily range): BP systolic 94–131; BP diastolic 50–69; PULSE 69–82; RESP 18–20
[2018-05-25] MEDS: SOD CHLORIDE 0.9% 1,000 ML IV SCH ×2 (01:08→08:07)
[2018-05-25] MEDS: PANTOPRAZOLE 40 MG INJ IV SCH ×2 (05:16→17:17)
[2018-05-25] MEDS: PROPRANOLOL 10 MG TAB PO SCH ×2 (08:06→20:30)
[2018-05-25] MEDS: SUCRALFATE (100 MG/ML) 10ML CUP PO SCH ×4 (08:06→20:31)
--- NOTE | 2018-05-25 10:22 | PN ---
Date/Time of Note Date/Time of Note DATE: 05/25/18 TIME: 10:20 Assessment/Plan VTE Prophylaxis Risk score (from Ns)>0 risk: 4 SCD applied (from Ns): Yes Pharmacological prophylaxis: NA/contraindicated Pharm contraindication: low risk/ambulating, bleeding Lines/Catheters IV [facility]from [facility] Peripheral IV Assessment/Plan Hospital Course SUBJECTIVE: No further hematemesis, melena or hematochezia. No abdominal pain. Tolerated clear diet. OBJECTIVE: Vital signs-see below PHYSICAL EXAM: Constitutional: Well-developed, adequately built, lying in bed comfortably. Psych: nl mood/affect, no complaints Head: atraumatic, normocephalic Eyes: nl conjunctiva, nl sclera ENMT: mucosa pink and moist, nl external ears & nose Neck: non-tender, supple Respiratory: clear to auscultation, normal air movement Cardiovascular: nl pulses, regular rate and rhythm Gastrointestinal: non-tender, soft, bowel sounds active in all 4 quadrants. Musculoskeletal/extremities:+Edema/tenderness Right UE. nl extremities to inspection, motor strength equal bilaterally, no focal deficit. Normal pulses,no cyanosis, no edema. Neurological: Alert oriented 3,nl speech, nl strength Skin: nl turgor ASSESSMENT/PLAN: 52-year-old male with daily alcohol use, here with sudden onset of blackish/tarry stool x 3 day duration, found to have severe anemia..underwent EGD w/ finding of alcoholic gastritis/grade I-II variceal bleed, now with both hematemesis/hematochezia. 1.GI bleed,-Status post EGD 05/19/2018=> alcoholic gastritis, esophageal varices grade I-II -Symptoms returned, status post repeat EGD 05/18/2018=>Esophageal varices grade IV=>S/p multiple ligation with control of bleeding.. -Now stable. Continue PPI/Carafate -Stop NSAIDs -Alcohol cessation 2. Acute blood loss anemia secondary to GI bleed on chronic anemia of alcoholic liver disease -Status post multiple transfusion. Now stable H&H. -Continue iron 3. Alcoholic liver disease/transaminitis/hepatitis C -Alcohol cessation advised. -Monitor LFTs -Hep C reactive, pending PCR=> management per entertainment musician=> if positive, can be done as outpatient. 4. Thrombocytopenia of alcoholic liver disease -Stable. Monitor 5. Alcohol abuse -Counseled on cessation 6. Thrombophlebitis of right upper extremity secondary to catheter placed. -Venous duplex with no evidence of DVT -Symptoms resolved. DVT prophylaxis: SCDs Due to prophylaxis: Protonix CODE STATUS: Full code Diet: Full liquid diet. Disposition: Advance diet. Downgraded to medical surgical floor. Repeat H&H in a.m. If no further bleeding over the next 24 hours, likely DC in a.m. with outpatient GI follow-up for hepatitis C follow-up. Patient was seen in collaboration with Result Diagram: 05/25/18 0750 05/25/18 0624 Results 24hrs Laboratory Tests Test 05/24/18 11:14 05/24/18 18:09 05/25/18 00:19 05/25/18 06:24 Lab Scanned REFERENCE LAB Report Hemoglobin 8.0 #L 6.9 *L Hematocrit 24.6 #L 21.3 L Sodium Level 135 Potassium Level 4.1 Chloride Level 109 Carbon Dioxide 24 Level Anion Gap 2 L Blood Urea 22 H Nitrogen Creatinine 0.63 Est Glomerular > 60 Filtrat Rate mL/min Glucose Level 104 Calcium Level 7.4 L Test 05/25/18 07:09 05/25/18 07:50 Lab Scanned BLOOD TRANSFUSIO Report N White Blood Count 13.1 H Red Blood Count 2.83 #L Hemoglobin 8.5 #L Hematocrit 26.3 #L Mean Corpuscular 92.9 Volume Mean Corpuscular 30.0 Hemoglobin Mean Corpuscular 32.3 Hemoglobin Concen t Red Cell 17.4 H Distribution Width Platelet Count 145 # Mean Platelet 10.8 H Volume Immature 2.700 H Granulocytes % Neutrophils % 61.1 Lymphocytes % 22.8 Monocytes % 11.2 H Eosinophils % 1.8 Basophils % 0.4 Nucleated Red 1.5 H Blood Cells % Immature 0.350 H Granulocytes # Neutrophils # 8.0 H Lymphocytes # 3.0 H Monocytes # 1.5 H Eosinophils # 0.2 Basophils # 0.1 Nucleated Red 0.2 H Blood Cells # Exam/Review of Systems Exam Vitals Vital Signs Date Temp Pulse Resp B/P (MAP) Pulse Ox O2 O2 Flow FiO2 Time Delivery Rate 05/25/18 81 08:25 05/25/18 98.5 18 102/63 96 07:23 (76) 05/25/18 Room Air 04:00 05/24/18 8.0 17:21 Intake and Output 05/24/18 05/24/18 05/25/18 1515:00 23:00 07:00 IntakeIntake Total 830 ml 450 ml BalanceBalance 830 ml 450 ml Results Results 24hrs Laboratory Tests Test 05/24/18 11:14 05/24/18 18:09 05/25/18 00:19 05/25/18 06:24 Lab Scanned REFERENCE LAB Report Hemoglobin 8.0 #L 6.9 *L Hematocrit 24.6 #L 21.3 L Sodium Level 135 Potassium Level 4.1 Chloride Level 109 Carbon Dioxide 24 Level Anion Gap 2 L Blood Urea 22 H Nitrogen Creatinine 0.63 Est Glomerular > 60 Filtrat Rate mL/min Glucose Level 104 Calcium Level 7.4 L Test 05/25/18 07:09 05/25/18 07:50 Lab Scanned BLOOD TRANSFUSIO Report N White Blood Count 13.1 H Red Blood Count 2.83 #L Hemoglobin 8.5 #L Hematocrit 26.3 #L Mean Corpuscular 92.9 Volume Mean Corpuscular 30.0 Hemoglobin Mean Corpuscular 32.3 Hemoglobin Concen t Red Cell 17.4 H Distribution Width Platelet Count 145 # Mean Platelet 10.8 H Volume Immature 2.700 H Granulocytes % Neutrophils % 61.1 Lymphocytes % 22.8 Monocytes % 11.2 H Eosinophils % 1.8 Basophils % 0.4 Nucleated Red 1.5 H Blood Cells % Immature 0.350 H Granulocytes # Neutrophils # 8.0 H Lymphocytes # 3.0 H Monocytes # 1.5 H Eosinophils # 0.2 Basophils # 0.1 Nucleated Red 0.2 H Blood Cells # Medications Medication Current Medications IV Flush (NS 3 ml) 3 ml PER PROTOCOL IV ; Start 05/19/18 at 13:00 Ondansetron HCl (Zofran Inj) 4 mg Q6H PRN IV NAUSEA/VOMITING Last administered on 05/24/18at 10:46; Admin Dose 4 MG; Start 05/19/18 at 13:00 Morphine Sulfate (morphine) 2 mg Q4H PRN IV .SEVERE PAIN 7-10 Last administered on 05/24/18at 19:13; Admin Dose 2 MG; Start 05/19/18 at 13:00 Propranolol HCl (Inderal) 10 mg BID PO Last administered on 05/25/18 08:06; Admin Dose 10 MG; Start 05/20/18 at 10:00 Pantoprazole (Protonix Iv) 40 mg BID@06,18 IV Last administered on 05/25/18at 05:16; Admin Dose 40 MG; Start 05/20/18 at 10:00 Sucralfate (Carafate Susp) 1 gm QID PO Last administered on 05/25/18at 08:06; Admin Dose 1 GM; Start 05/21/18 at 14:30 Sodium Chloride 1,000 ml @ 125 mls/hr Q8H IV Last administered on 05/25/18at 01:08; Admin Dose 125 MLS/HR; Start 05/24/18 at 09:00 Acetaminophen (Tylenol Tab) 325 mg Q6H PRN PO MILD PAIN(1-3)OR ELEVATED TEMP; Start 05/24/18 at 10:30 VASILE BAH NP May 25, 2018 10:22
--- NOTE | 2018-05-25 15:38 | PN ---
Date/Time of Note Date/Time of Note DATE: 05/25/18 TIME: 15:31 Assessment/Plan VTE Prophylaxis Risk score (from Ns)>0 risk: 4 SCD applied (from Ns): Yes Pharmacological prophylaxis: other (scds) Lines/Catheters IV Catheter Type (from [facility]): Peripheral IV Assessment/Plan Hospital Course Assessment/Plan Assessment: Hematemesis S/p EGD 05/24/18 EV grade 4/4- s/p EVL x7 otherwise normal EGD Melena - resolved Anemia- stable S/p EGD 05/19/18 -Hemorrhagic alcoholic gastritis -Esophageal varices Liver disease- 04/30 to ETOH and/or Hep C- RNA Positive Hepatitis C AB- positive - If RNA elevated plan to treat with Mavyret as patient is Child-[place] Class A- compensated liver cirrhosis Thrombocytopenia Elevated LFT's -ALD v Hep C AB positive Excessive ETOH use Thrombophlebitis of right upper extremity secondary to catheter placed 2 cm echogenic lesion in the right hepatic lobe -Likely representing a hemangioma. Plan: AFP- 4 Advance diet as tolerated Continue Protonix and Carafate Propranolol 10 mg BID Iron supplements Hep C RNA positive- pt will need to f/u with GI to start treatment Repeat EGD in 3 months liver lesions- will order Ct with liver protocol Patient seen in collaboration with Dr. Stephens/Rodrigo Subjective: Discussed results of EGD and Hep C RNA Pt verbalized understanding, Family questions answered. I did not speak about Hepatitis C per patient wishes No over night events. HGB is stable. Discussed plan for Ct abd with liver protocol, pt agreed. PHYSICAL EXAMINATION: GENERAL: Well developed, well nourished, alert & oriented x 3, in no acute distress SKIN: No lesions CHEST: Inspection within normal limits. CARDIOVASCULAR: Heart: Regular rate and rhythm, RESPIRATORY: Lungs clear to auscultation GASTROINTESTINAL AND LIVER: Abdomen: Soft, non tenderness, non-distended, no hernias, no masses, no organomegaly, no ascites, no guarding, no rebound tenderness, normoactive bowel sounds. Rectal: Deferred. Result Diagram: 05/25/18 0750 05/25/18 0624 Results 24hrs Laboratory Tests Test 05/24/18 18:09 05/25/18 00:19 05/25/18 06:24 05/25/18 07:09 Hemoglobin 8.0 #L 6.9 *L Hematocrit 24.6 #L 21.3 L Sodium Level 135 Potassium Level 4.1 Chloride Level 109 Carbon Dioxide 24 Level Anion Gap 2 L Blood Urea 22 H Nitrogen Creatinine 0.63 Est Glomerular > 60 Filtrat Rate mL/min Glucose Level 104 Calcium Level 7.4 L Lab Scanned BLOOD TRANSFUSIO Report N Test 05/25/18 07:50 White Blood Count 13.1 H Red Blood Count 2.83 #L Hemoglobin 8.5 #L Hematocrit 26.3 #L Mean Corpuscular 92.9 Volume Mean Corpuscular 30.0 Hemoglobin Mean Corpuscular 32.3 Hemoglobin Concen t Red Cell 17.4 H Distribution Width Platelet Count 145 # Mean Platelet 10.8 H Volume Immature 2.700 H Granulocytes % Neutrophils % 61.1 Lymphocytes % 22.8 Monocytes % 11.2 H Eosinophils % 1.8 Basophils % 0.4 Nucleated Red 1.5 H Blood Cells % Immature 0.350 H Granulocytes # Neutrophils # 8.0 H Lymphocytes # 3.0 H Monocytes # 1.5 H Eosinophils # 0.2 Basophils # 0.1 Nucleated Red 0.2 H Blood Cells # Exam/Review of Systems Exam Vitals Vital Signs Date Temp Pulse Resp B/P (MAP) Pulse Ox O2 O2 Flow FiO2 Time Delivery Rate 05/25/18 98.3 69 18 107/64 98 15:10 (78) 05/25/18 Room Air 04:00 05/24/18 8.0 17:21 Intake and Output 05/24/18 05/24/18 05/25/18 1515:00 23:00 07:00 IntakeIntake Total 830 ml 450 ml BalanceBalance 830 ml 450 ml Results Results 24hrs Laboratory Tests Test 05/24/18 18:09 05/25/18 00:19 05/25/18 06:24 05/25/18 07:09 Hemoglobin 8.0 #L 6.9 *L Hematocrit 24.6 #L 21.3 L Sodium Level 135 Potassium Level 4.1 Chloride Level 109 Carbon Dioxide 24 Level Anion Gap 2 L Blood Urea 22 H Nitrogen Creatinine 0.63 Est Glomerular > 60 Filtrat Rate mL/min Glucose Level 104 Calcium Level 7.4 L Lab Scanned BLOOD TRANSFUSIO Report N Test 05/25/18 07:50 White Blood Count 13.1 H Red Blood Count 2.83 #L Hemoglobin 8.5 #L Hematocrit 26.3 #L Mean Corpuscular 92.9 Volume Mean Corpuscular 30.0 Hemoglobin Mean Corpuscular 32.3 Hemoglobin Concen t Red Cell 17.4 H Distribution Width Platelet Count 145 # Mean Platelet 10.8 H Volume Immature 2.700 H Granulocytes % Neutrophils % 61.1 Lymphocytes % 22.8 Monocytes % 11.2 H Eosinophils % 1.8 Basophils % 0.4 Nucleated Red 1.5 H Blood Cells % Immature 0.350 H Granulocytes # Neutrophils # 8.0 H Lymphocytes # 3.0 H Monocytes # 1.5 H Eosinophils # 0.2 Basophils # 0.1 Nucleated Red 0.2 H Blood Cells # Medications Medication Current Medications IV Flush (NS 3 ml) 3 ml PER PROTOCOL IV ; Start 05/19/18 at 13:00 Ondansetron HCl (Zofran Inj) 4 mg Q6H PRN IV NAUSEA/VOMITING Last administered on 05/24/18at 10:46; Admin Dose 4 MG; Start 05/19/18 at 13:00 Morphine Sulfate (morphine) 2 mg Q4H PRN IV .SEVERE PAIN 7-10 Last administered on 05/24/18 19:13; Admin Dose 2 MG; Start 05/19/18 at 13:00 Propranolol HCl (Inderal) 10 mg BID PO Last administered on 05/25/18 08:06; Admin Dose 10 MG; Start 05/20/18 at 10:00 Pantoprazole (Protonix Iv) 40 mg BID@06,18 IV Last administered on 05/25/18 05:16; Admin Dose 40 MG; Start 05/20/18 at 10:00 Sucralfate (Carafate Susp) 1 gm QID PO Last administered on 05/25/18 12:31; Admin Dose 1 GM; Start 05/21/18 at 14:30 Acetaminophen (Tylenol Tab) 325 mg Q6H PRN PO MILD PAIN(1-3)OR ELEVATED TEMP; Start 05/24/18 at 10:30 ALTON ENGLAND May 25, 2018 15:38
[2018-05-25] MEDS ORDERED: IOHEXOL 300MG/ML 150 ML BTL ONE (20:46)
[2018-05-25] MEDS ORDERED: SOD CHLORIDE 0.9% 100 ML ONE (20:46)
[2018-05-26 00:33] VITALS: BP 109/68; PULSE 71; RESP 18
[2018-05-26 05:07] VITALS: BP 107/70; PULSE 69; RESP 18
[2018-05-26] MEDS: PANTOPRAZOLE 40 MG INJ IV SCH (05:46)
[2018-05-26 07:18] VITALS: BP 106/65; PULSE 68; RESP 18
[2018-05-26] MEDS: PROPRANOLOL 10 MG TAB PO SCH (07:41)
[2018-05-26] MEDS: SUCRALFATE (100 MG/ML) 10ML CUP PO SCH (07:41)
--- NOTE | 2018-05-26 10:49 | PDOCDIS ---
Discharge Instructions CONDITION [id number] Patient Condition: [id number] Stable HOME CARE INSTRUCTIONS: [id number] Diet Instructions: [id number] Regular FOLLOW UP/APPOINTMENTS Follow-up Plan Follow-up With primary care physician in 1 week. You need to have a repeat endoscopy in 3 months and your primary care doctor can refer you to or any other concrete pump operator with insurance authorization. You have a condition called esophageal variceal bleed caused by alcohol use, this was ligated 7 times to control bleed. You should abstain from alcohol products, otherwise this can cause rebleeding and . VASILE BAH NP May 26, 2018 10:49
[2018-05-26] MEDS ORDERED: PROP10TA6 PO (10:51)
[2018-05-26] MEDS ORDERED: CARAS PO (10:51)
[2018-05-26] MEDS ORDERED: PANT40TA3 PO (10:51)
--- NOTE | 2018-05-26 11:01 | DS ---
Date/Time of Note Date/Time of Note DATE: 05/26/18 TIME: 10:58 Discharge Summary Admission/Discharge Info Admit Date/Time May 19, 2018 at 11:07 Discharge Date/Time Discharge Diagnosis 1.GI bleed w/Esophageal varices grade IV=>S/p multiple ligation with control of bleeding. 2. Acute blood loss anemia secondary to GI bleed on chronic anemia of alcoholic liver disease 3. Alcoholic liver disease/transaminitis 4. Thrombocytopenia of alcoholic liver disease.stable 5. Alcohol abuse 6. Thrombophlebitis of right upper extremity secondary to catheter placed. Resolved 7. Hepatitis C. GI outpatient follow-up Patient Condition: Stable Consults , gastroenterology Procedures Procedure performed: S/p EGD 05/24/18 EV grade 4/4- s/p EVL x7 otherwise normal EGD Melena - resolved Anemia- stable S/p EGD 05/19/18 -Hemorrhagic alcoholic gastritis -Esophageal varices Hx of Present Illness 52-year-old male with no past medical history, here with sudden onset of black/tarry stool started Wednesday. Patient also had associated abdominal pain, palpitation, nausea without vomiting. Patient admits to drinking alcohol daily for the past week. He denied fever, chills, diarrhea, constipation, sinus, loss of consciousness, shortness of breath, chest pain, palpitation, or other constitutional symptoms. Patient didn't have any previous EGD or colonoscopy evaluations. In the emergency room, patient was noted with hemoglobin 5.9, hematocrit 18.4. Patient also had elevated white count 12,700, BUN 25, AST 81, ALT 107. Vital signs showed elevated pulse rate 119, blood pressure 167/93 on arrival. EKG showed sinus tachycardia with no ST or T wave changes. Patient was ordered with total 2 units of packed red blood cells. He was also placed on tonics drip. Hospital Course 52-year-old male with alcohol abuse, admitted with hematochezia/hematemesis, found to have severe esophageal variceal bleed. Patient had severe anemia requiring multiple transfusion, thrombocytopenia requiring 1 unit of plateletpheresis, transaminitis. Patient underwent EGD on 05/19/2018, showed alcoholic gastritis, esophageal varices grade 1-2. Patient was then continued on Protonix and Carafate. He was then started on a diet, unfortunately he replied with bouts of hematemesis requiring repeat EGD on 05/24/2018, showed Esophageal varices grade IV, required multiple ligation 7 times with control of bleeding. Patient was again continued on Protonix and Carafate. He did not have any further rectal bleed or hematemesis. His hemoglobin remained stable thereafter. He has been tolerating diet and activities. LFTs trended down. Hospital course was also noted for positive hepatitis C studies for which outpatient GI follow-up was recommended. He was also noted with a superficial thrombus/thrombophlebitis of right upper extremity secondary to IV catheter placed, resolved with supportive care. Patient is also very ready to quit alcohol as he is well aware of this condition and chances of rebleeding if he continues to drink. Patient also needs to have a repeat EGD evaluation for which he needs to have his primary care doctor refer him to appropriate clinical veterinarian. I have also instructed our case management to fax a copy of his records to the insurance to see if we can initiate the authorization process. Approximately 60 m spent on coordinating the discharge on this patient. Patient was seen in collaboration with [place] [facility] Pantoprazole* (Protonix*) 40 Mg Tablet., 40 MG PO BID, #60 TAB 2 Refills Prov:BAH,VASILE V. MANAGER DIESEL 05/26/18 Sucralfate* (Carafate*) 1 Gm/10 Ml Susp, 1 GM PO QID, #120 DOSE Prov:BAH,VASILE V. MANAGER DIESEL 05/26/18 Propranolol Hcl* (Propranolol Hcl*) 10 Mg Tablet, 10 MG PO BID, #90 TAB Prov:BAH,VASILE V. MANAGER DIESEL 05/26/18 Follow-up Plan Follow-up With primary care physician in 1 week. You need to have a repeat endoscopy in 3 months and your primary care doctor can refer you to or any other clinical veterinarian with insurance authorization. You have a condition called esophageal variceal bleed caused by alcohol use, this was ligated 7 times to control bleed. You should abstain from alcohol products, otherwise this can cause rebleeding and . Primary Care Provider Care Physician No Primary Pending Labs Laboratory Tests Test 05/25/18 16:45 05/26/18 00:47 05/26/18 05:26 Hemoglobin 8.8 7.7 8.3 g/dl (14.0-18.0) g/dl (14.0-18.0) g/dl (14.0-18.0) Hematocrit 27.2 % (42.0-52.0) 24.0 % (42.0-52.0) 26.8 % (42.0-52.0) White Blood Count 8.9 10^3/ul (4.8-10.8) Red Blood Count 2.82 10^6/ul (4.70-6.10 ) Mean Corpuscular 95.0 Volume fl (82.0-101.0) Mean Corpuscular 29.4 Hemoglobin pg (29.0-33.0) Mean Corpuscular 31.0 Hemoglobin Concent g/dl (32.0-37.0) Red Cell 18.5 % (11.5-14.5) Distribution Width Platelet Count 111 10^3/UL (140-415) Mean Platelet 11.5 fl (7.4-10.4) Volume Immature 1.600 Granulocytes % % (0.001-0.429) Neutrophils % 57.8 % (39.0-77.0) Lymphocytes % 27.0 % (15.0-51.0) Monocytes % 10.5 % (0.0-11.0) Eosinophils % 2.9 % (0.0-7.0) Basophils % 0.2 % (0.0-2.0) Nucleated Red Blood 0.9 Cells % /100WBC (0.0-0.0) Immature 0.140 Granulocytes # 10^3/ul (0.0-0.031 ) Neutrophils # 5.2 10^3/ul (1.6-7.5) Lymphocytes # 2.4 10^3/ul (0.8-2.9) Monocytes # 0.9 10^3/ul (0.3-0.9) Eosinophils # 0.3 10^3/ul (0.0-0.5) Basophils # 0.0 10^3/ul (0.0-0.1) Nucleated Red Blood 0.1 Cells # 10^3/ul (0.0-0.0) Sodium Level 136 mmol/L (135-144) Potassium Level 4.0 mmol/L (3.5-5.1) Chloride Level 107 mmol/L (97-110) Carbon Dioxide 23 mmol/L (21-31) Level Anion Gap 6 (5-13) Blood Urea 14 mg/dl (7-20) Nitrogen Creatinine 0.61 mg/dl (0.61-1.24) Est Glomerular > 60 mL/min (>60) Filtrat Rate mL/min Glucose Level 89 mg/dl (70-220) Calcium Level 7.3 mg/dl (8.4-10.2) Total Bilirubin 1.2 mg/dl (0.2-1.3) Direct Bilirubin 0.00 mg/dl (0.00-0.20) Indirect Bilirubin 1.2 mg/dl (0-1.1) Aspartate Amino 79 IU/L (15-46) Transf (AST/SGOT) Alanine 85 IU/L (13-69) Aminotransferase (A LT/SGPT) Alkaline 40 IU/L (42-121) Phosphatase Total Protein 4.8 g/dl (6.1-8.1) Albumin 2.1 g/dl (3.3-4.9) Globulin 2.70 g/dl (1.3-3.2) Albumin/Globulin 0.77 Ratio VASILE BAH NP May 26, 2018 11:01
[2018-05-26 11:38] VITALS: BP 133/78; PULSE 65; RESP 18
== END 2018-05-26 11:51 | disposition home or self-care (01) | DRG 377 ==
LOC: E/R 09:10 → TEL 11:07
PROVIDERS: ADMIT Family Medicine; ATTEND Family Medicine
PROC: 30233N1 Transfusion of Nonautologous Red Blood Cells into Peripheral Vein, Percutaneous Approach (ICD-10-PCS; 2018-05-19)
PROC: 0DJ08ZZ Inspection of Upper Intestinal Tract, Via Natural or Artificial Opening Endoscopic (ICD-10-PCS; 2018-05-19)
PROC: 30233R1 Transfusion of Nonautologous Platelets into Peripheral Vein, Percutaneous Approach (ICD-10-PCS; 2018-05-20)
PROC: 06L38CZ Occlusion of Esophageal Vein with Extraluminal Device, Via Natural or Artificial Opening Endoscopic (ICD-10-PCS; principal; 2018-05-24 16:30)
DX: K29.21 Alcoholic gastritis with bleeding (principal); I85.11 Secondary esophageal varices with bleeding; D62 Acute posthemorrhagic anemia; T82.898A Other specified complication of vascular prosthetic devices, implants and grafts, initial encounter; R65.10 Systemic inflammatory response syndrome (SIRS) of non-infectious origin without acute organ dysfunction; K70.9 Alcoholic liver disease, unspecified; K92.1 Melena; I85.10 Secondary esophageal varices without bleeding; K70.30 Alcoholic cirrhosis of liver without ascites; D72.829 Elevated white blood cell count, unspecified; R79.89 Other specified abnormal findings of blood chemistry; F10.10 Alcohol abuse, uncomplicated; D69.6 Thrombocytopenia, unspecified; F10.20 Alcohol dependence, uncomplicated; D63.8 Anemia in other chronic diseases classified elsewhere; B19.20 Unspecified viral hepatitis C without hepatic coma
CPT/HCPCS: 36415; 36430; 71045; 74160; 76705; 80048; 80053; 80061; 81003; 82105; 82378; 82728; 83036; 83540; 83690; 83735; 84100; 84484; 85014; 85018; 85025; 85049; 85610; 85670; 85730; 86704; 86709; 86803; 86850; 86900; 86901; 86920; 87340; 93005; 93971; C9113; J0696; J1940; J2250; J2270; J2405; J2916; J3010; J7030; J7040; P9016; P9035; Q9967

== ENCOUNTER → 2018-10-16 | Emergency (ER) | payer MEDICAID ==
[~2018-10-16] VITALS: Ht 172.7 cm; Wt 82.3 kg
[~2018-10-16] MED LIST changes: +CARAS PO; +FAMOTIDINE 20 MG INJ IV STA; +LACTATED RINGER'S 1,000 ML IV STA; -LIDOCAINE 2% (SDV) 5 ML INJ ONE; +PANT40TA3 PO; +PROP10TA6 PO
[2018-10-16 16:03] VITALS: Ht 172.7 cm; Wt 82.3 kg
--- NOTE | 2018-10-16 16:59 | ERD ---
ER Documentation Chief Complaint Chief Complaint c/o red blood in stool since , appears more pale than normal HPI This is a 52-year-old male with a history of previous alcohol abuse, esophageal varices with banding who presents to the emergency room for evaluation of generalized weakness and blood in stool. The patient states that he noticed his stool was a slightly darker than it normally is and he states that he was fe eling weak. The patient denies any abdominal pain, denies any alcohol use, no vomiting and came to the ER today for evaluation of his symptoms. ROS All systems reviewed and are negative except as per history of present illness. Medications Home Meds Discontinued Scripts Pantoprazole* (Protonix*) 40 Mg Tablet.dr, 40 MG PO BID, #60 TAB 2 Refills Prov:BAH,VASILE V. FARMWORKER GENERAL 05/26/18 Sucralfate* (Carafate*) 1 Gm/10 Ml Susp, 1 GM PO QID, #120 DOSE Prov:BAH,VASILE V. FARMWORKER GENERAL 05/26/18 Propranolol Hcl* (Propranolol Hcl*) 10 Mg Tablet, 10 MG PO BID, #90 TAB Prov:BAH,VASILE V. FARMWORKER GENERAL 05/26/18 Allergies Allergies: Coded Allergies: No Known Allergy (Unverified , 10/16/18) PMhx/Soc History of Surgery: Yes (HERNIA) Anesthesia Reaction: No Hx Neurological Disorder: No Hx Respiratory Disorders: No Hx Cardiac Disorders: No Hx Psychiatric Problems: No Hx Miscellaneous Medical Probl: Yes (GASTRIC ULCERS, HEPATITIS, LIVER CIRRHOSIS) Hx Alcohol Use: Yes (DAILY) Hx Substance Use: No Hx Tobacco Use: No Smoking Status: Never smoker Physical Exam Vitals Vital Signs Date Temp Pulse Resp B/P (MAP) Pulse Ox O2 O2 Flow FiO2 Time Delivery Rate 10/16/18 Nasal 2 16:24 Cannula 10/16/18 98.9 78 20 129/73 99 16:03 (91) Physical Exam INITIAL VITAL SIGNS: Reviewed by me GENERAL: The patient is well developed and appropriate for usual state of health in no apparent distress HEENT: Pupils equal, round, and reactive to light. EOMI. There is no scleral icterus. NECK: C-spine is soft and supple, there is no meningismus. There is no cervical lymphadenopathy. LUNGS: Clear to auscultation bilaterally. There are no rales, wheezes or rhonchi. HEART: Regular rate and rhythm, no murmurs, clicks, rubs or gallops. ABDOMEN: Soft, non-tender, non-distended. There are bowel sounds in all four quadrants. No rebound or guarding. EXTREMITIES: There is no peripheral cyanosis or edema. No focal swelling or erythema. NEUROLOGICAL: The patient moves all four extremities with 5/5 strength. Cranial nerves II - XII are intact. Normal gait. Alert and oriented SKIN: There is no apparent rash or petechiae. HEME/LYMPHATIC: There is no evidence of excessive bruising or lymphedema. Rectal exam: Brown stool heme positive PSYCHIATRIC: The patient does not appear anxious or depressed. Result Diagram: 10/16/18 1628 10/16/18 1627 Results 24 hrs Laboratory Tests Test 10/16/18 16:27 10/16/18 16:28 Prothrombin Time 14.7 Sec Prothrombin Time Ratio 1.1 INR International Normalized Ratio 1.14 Activated Partial Thromboplast Time 29.7 Sec Sodium Level 143 mmol/L Potassium Level 4.1 mmol/L Chloride Level 110 mmol/L Carbon Dioxide Level 25 mmol/L Anion Gap 8 Blood Urea Nitrogen 23 mg/dl Creatinine 0.89 mg/dl Est Glomerular Filtrat Rate mL/min > 60 mL/min Glucose Level 87 mg/dl Calcium Level 8.7 mg/dl Total Bilirubin 1.1 mg/dl Direct Bilirubin 0.00 mg/dl Indirect Bilirubin 1.1 mg/dl Aspartate Amino Transf (AST/SGOT) 68 IU/L Alanine Aminotransferase (ALT/SGPT) 80 IU/L Alkaline Phosphatase 76 IU/L Troponin I < 0.012 ng/ml Total Protein 7.1 g/dl Albumin 3.6 g/dl Globulin 3.50 g/dl Albumin/Globulin Ratio 1.02 White Blood Count 4.6 10^3/ul Red Blood Count 3.76 10^6/ul Hemoglobin 7.2 g/dl Hematocrit 25.1 % Mean Corpuscular Volume 66.8 fl Mean Corpuscular Hemoglobin 19.1 pg Mean Corpuscular Hemoglobin Concent 28.7 g/dl Red Cell Distribution Width 20.7 % Platelet Count 101 10^3/UL Mean Platelet Volume 9.8 fl Immature Granulocytes % 0.200 % Neutrophils % 51.3 % Lymphocytes % 32.2 % Monocytes % 13.5 % Eosinophils % 2.4 % Basophils % 0.4 % Nucleated Red Blood Cells % 0.0 /100WBC Immature Granulocytes # 0.010 10^3/ul Neutrophils # 2.4 10^3/ul Lymphocytes # 1.5 10^3/ul Monocytes # 0.6 10^3/ul Eosinophils # 0.1 10^3/ul Basophils # 0.0 10^3/ul Nucleated Red Blood Cells # 0.0 10^3/ul Current Medications Medications Dose Sig/Jean Paul Start Time Status Last (Trade) Ordered Route PRN Stop Time Admin Dose Reason Admin Lactated 1,000 ml @ Q1H STAT 10/16/18 DC 10/16/18 Ringer's 1,000 mls/hr IV 16:24 16:34 10/16/18 17:23 Famotidine 20 mg ONCE STAT 10/16/18 DC 10/16/18 (Pepcid Iv) IV 16:24 16:33 10/16/18 16:25 Procedures/MDM This is a 52-year-old male with a history of gastritis and esophageal varices and previous alcohol abuse who presents to the ER for evaluation of generalized weakness and dark stools. On my examination the patient was afebrile, nontoxic- appearing and hemodynamically stable. Rectal exam did show brown stool which was speckled heme positive however not grossly positive. His hemoglobin is 7.2 and his baseline is around 8. The patient was given IV fluids and on reevaluation the patient states he is feeling much better. The patient was advised that he will need to follow-up with his primary care physician tomorrow morning. The patient did verbalize understanding and is requesting to go home. The patient will be discharged with a prescription for pantoprazole and advised to return to the ER at any moment for reevaluation if he were to have any weakness or abdominal pain or any discomfort. Departure Diagnosis: Primary Impression: Occult blood in stools Condition: RYLAND Medley DO Oct 16, 2018 16:59
[2018-10-16 17:50] VITALS: BP 123/70; PULSE 88; RESP 18
== END | disposition home or self-care (01) ==
LOC: E/R 15:37
DX: R19.5 Other fecal abnormalities (principal); R53.1 Weakness
CPT/HCPCS: 36415; 80053; 84484; 85025; 85610; 85730; 86850; 86900; 86901; 93005; 96374; J7120; Z7502; Z7610